=== PATIENT | male | born 1940 | race Caucasian/White ===

== ENCOUNTER 2018-06-04 08:58 | Emergency (ER) | payer MEDICARE, OTHER ==
[~2018-06-04] VITALS: Ht 170.2 cm; Wt 98.0 kg
[2018-06-04 09:50] LABS: BASOPHILS % (AUTO) 0 % (0-10); EOSINOPHILS # (AUTO) 0.1 10^3/uL (0.0-0.3); EOSINOPHILS % (AUTO) 2 % (0-10); HEMATOCRIT 43 % (40-54); HEMOGLOBIN 14.8 G/DL (13.3-17.7); LYMPHOCYTES # (AUTO) 1.5 X 10^3 (1.0-4.0); LYMPHOCYTES % (AUTO) 21 % (12-44); MEAN CORPUSCULAR HEMOGLOBIN 30 PG (25-34); MEAN CORPUSCULAR HGB CONC 35 G/DL (32-36); MEAN CORPUSCULAR VOLUME 85 FL (80-99); MEAN PLATELET VOLUME 9.9 FL (7.4-10.4); MONOCYTES # (AUTO) 0.6 X 10^3 (0.0-1.0); MONOCYTES % (AUTO) 8 % (0-12); NEUTROPHILS # (AUTO) 4.8 X 10^3 (1.8-7.8); NEUTROPHILS % (AUTO) 69 % (42-75); PLATELET COUNT 151 10^3/uL (130-400); RED CELL DISTRIBUTION WIDTH 13.6 % (10.0-14.5); WHITE BLOOD COUNT 6.9 10^3/uL (4.3-11.0)
--- NOTE | 2018-06-04 09:57 | NUR ---
IN ROOM AT THIS TIME.
[2018-06-04] MEDS ORDERED: GABA-488 (09:59)
[2018-06-04] MEDS ORDERED: LISI1TAB10 (09:59)
[2018-06-04] MEDS ORDERED: SIMV40TA4 (09:59)
[2018-06-04] MEDS ORDERED: NS IV 1000 ML 1,000 ML IV ONE (09:59)
[2018-06-04 10:02] LABS: MAGNESIUM 2.2 MG/DL (1.8-2.4)
[2018-06-04 10:08] LABS: ALANINE AMINOTRANSFERASE 27 U/L (0-55); ALBUMIN 4.7 GM/DL (3.2-4.5); ALKALINE PHOSPHATASE 50 U/L (40-136); BILIRUBIN,TOTAL 0.7 MG/DL (0.1-1.0); BUN/CREATININE RATIO 17; CALCIUM 9.9 MG/DL (8.5-10.1); CARBON DIOXIDE 23 MMOL/L (21-32); CHLORIDE 105 MMOL/L (98-107); CREATININE SERUM 1.22 MG/DL (0.60-1.30); GFR ESTIMATED 57; GLUCOSE 126 MG/DL (70-105); POTASSIUM 4.3 MMOL/L (3.6-5.0); SODIUM 139 MMOL/L (135-145); TOTAL PROTEIN 7.4 GM/DL (6.4-8.2)
--- NOTE | 2018-06-04 10:21 | Diagnostic Imaging Report ---
CLINICAL INDICATION: Patient having fainting spells. EXAM: Portable chest x-ray, upright view. COMPARISON: None. FINDINGS: Lungs/pleura: Suspected minimal atelectasis in the right lung base; otherwise, the lungs are clear. There is no pneumothorax. There is no pleural effusion. Mediastinum: Unremarkable. Pulmonary vasculature: Unremarkable. Heart: Unremarkable. Bones/extrathoracic soft tissue: There are hypertrophic spurs seen throughout the thoracic spine. IMPRESSION: There is minimal atelectasis in the right lung base; otherwise, there is no radiographic evidence of acute cardiopulmonary process. Dictated by: Dictated on workstation # [id number]
--- NOTE | 2018-06-04 10:52 | ED General ---
General Chief Complaint: Dizziness/Syncope Stated Complaint: DIZZINESS Nursing Triage Note: ARRIVED VIA AMB TO ROOM 05. COMPLAINS DIZINESS X2 NIGHTS ALONG WITH N/D BUT DIARRHEA HAS BEEN ONGOING FOR A MONTH. Nursing Sepsis Screen: No Definite Risk Source of Information: Patient Exam Limitations: No Limitations History of Present Illness Date Seen by Provider: Jun 04, 2018 Time Seen by Provider: 09:55 Initial Comments Here with report of intermittent dizziness over the last couple of nights. Has had diarrhea ongoing for the last month intermittently. Denies blood in his stool. Denies dysuria. Denies nausea and vomiting. Dizziness was worse last night when he turned his head or trying to set up. If he was sitting in a chair then he is not having problems. Overall feeling better now and has no dizziness. He states that he had episode similar to this in the past and it was associated with dehydration. Timing/Duration: 2-3 Days, Intermittent Severity: Moderate Modifying Factors: improves with Rest Associated Systoms: No Chest Pain, No Cough, No Fever/Chills, No Nausea/ Vomiting, No Shortness of Air, No Weakness Allergies and Home Medications Allergies Coded Allergies: No Known Drug Allergies (Unverified , 06/04/18) Patient Home Medication List Home Medication List Reviewed: Yes Review of Systems Review of Systems Constitutional: see HPI; No fever; malaise; No weakness EENTM: No nose congestion, No throat pain Respiratory: No cough, No short of breath Cardiovascular: No chest pain, No edema Gastrointestinal: abdominal pain; No constipation; diarrhea; No nausea, No vomiting Genitourinary: no symptoms reported Musculoskeletal: no symptoms reported Psychiatric/Neurological: See HPI All Other Systems Reviewed Negative Unless Noted: Yes Past Cgfzqml-Qgwugf-Mqzxdi Hx Past Med/Social Hx: Reviewed Nursing Past Med/Soc Hx Patient Social History Alcohol Use: Occasionally Uses Alcohol Beverage of Choice: Beer Recreational Drug Use: No Smoking Status: Former Smoker Recent Foreign Travel: No Contact w/Someone Who Travel: No Recent Infectious Disease Expo: No Recent Hopitalizations: No Seasonal Allergies Seasonal Allergies: No Past Medical History Surgeries: Yes Orthopedic Respiratory: No Cardiac: Yes High Cholesterol, Hypertension Neurological: No Genitourinary: No Gastrointestinal: No Musculoskeletal: No Endocrine: No HEENT: No Psychosocial: No Integumentary: No Family Medical History Reviewed Nursing Family Hx No Pertinent Family Hx Physical Exam Vital Signs Vital Signs - First Documented 06/04/18 09:18 Temp 98.2 Pulse 76 Resp 16 B/P (MAP) 168/97 (120) Pulse Ox 98 O2 Delivery Room Air Capillary Refill : Less Than 3 Seconds Height, Weight, BMI Height: 5'7.00" Weight: 216lbs. oz. 97.033482qm; BMI Method:Stated General Appearance: No Apparent Distress, WD/WN HEENT: PERRL/EOMI, Pharynx Normal Neck: Non Tender, Supple Respiratory: Lungs Clear, Normal Breath Sounds Cardiovascular: Regular Rate, Rhythm, No Murmur Gastrointestinal: Non Tender, Soft Back: Normal Inspection, No CVA Tenderness, No Vertebral Tenderness Extremity: Normal Range of Motion, Non Tender Neurologic/Psychiatric: Alert, Oriented x3, No Motor/Sensory Deficits Skin: Normal Color, Warm/Dry Progress/Results/Core Measures Suspected Sepsis Recent Fever Within 48 Hours: No Infection Criteria Present: Suspected New Infection New/Unexplained Altered Menta: No Sepsis Screen: No Definite Risk SIRS Temperature:98.2 Pulse: 76 Respiratory Rate: 16 Laboratory Tests 06/04/18 09:35: White Blood Count 6.9 Blood Pressure 168 /97 Mean: 120 Laboratory Tests 06/04/18 09:35: Creatinine 1.22, Platelet Count 151, Total Bilirubin 0.7 06/04/18 09:40: INR Comment 1.0 Results/Orders Lab Results Laboratory Tests Test 06/04/18 09:35 06/04/18 09:40 06/04/18 11:10 Range/Units White Blood Count 6.9 4.3-11.0 10^3/uL Red Blood Count 4.98 4.35-5.85 10^6/uL Hemoglobin 14.8 13.3-17.7 G/DL Hematocrit 43 40-54 % Mean Corpuscular Volume 85 80-99 FL Mean Corpuscular Hemoglobin 30 25-34 PG Mean Corpuscular Hemoglobin Concent 35 32-36 G/DL Red Cell Distribution Width 13.6 10.0-14.5 % Platelet Count 151 130-400 10^3/uL Mean Platelet Volume 9.9 7.4-10.4 FL Neutrophils (%) (Auto) 69 42-75 % Lymphocytes (%) (Auto) 21 12-44 % Monocytes (%) (Auto) 8 0-12 % Eosinophils (%) (Auto) 2 0-10 % Basophils (%) (Auto) 0 0-10 % Neutrophils # (Auto) 4.8 1.8-7.8 X 10^3 Lymphocytes # (Auto) 1.5 1.0-4.0 X 10^3 Monocytes # (Auto) 0.6 0.0-1.0 X 10^3 Eosinophils # (Auto) 0.1 0.0-0.3 10^3/uL Basophils # (Auto) 0.0 0.0-0.1 10^3/uL Sodium Level 139 135-145 MMOL/L Potassium Level 4.3 3.6-5.0 MMOL/L Chloride Level 105 98-107 MMOL/L Carbon Dioxide Level 23 21-32 MMOL/L Anion Gap 11 5-14 MMOL/L Blood Urea Nitrogen 21 H 7-18 MG/DL Creatinine 1.22 0.60-1.30 MG/DL Estimat Glomerular Filtration Rate 57 BUN/Creatinine Ratio 17 Glucose Level 126 H 70-105 MG/DL Calcium Level 9.9 8.5-10.1 MG/DL Corrected Calcium 8.5-10.1 MG/DL Total Bilirubin 0.7 0.1-1.0 MG/DL Aspartate Amino Transf (AST/SGOT) 21 5-34 U/L Alanine Aminotransferase (ALT/SGPT) 27 0-55 U/L Alkaline Phosphatase 50 40-136 U/L Total Protein 7.4 6.4-8.2 GM/DL Albumin 4.7 H 3.2-4.5 GM/DL Prothrombin Time 13.0 12.2-14.7 SEC INR Comment 1.0 0.8-1.4 Activated Partial Thromboplast Time 25 24-35 SEC Magnesium Level 2.2 1.8-2.4 MG/DL Myoglobin 51.3 10.0-92.0 NG/ML Troponin I < 0.028 <0.028 NG/ML Urine Color YELLOW Urine Clarity SLIGHTLY CLOUDY Urine pH 7 5-9 Urine Specific [place] 1.010 L 1.016-1.022 Urine Protein NEGATIVE NEGATIVE Urine Glucose (UA) NEGATIVE NEGATIVE Urine Ketones NEGATIVE NEGATIVE Urine Nitrite NEGATIVE NEGATIVE Urine Bilirubin NEGATIVE NEGATIVE Urine Urobilinogen NORMAL NORMAL MG/DL Urine Leukocyte Esterase NEGATIVE NEGATIVE Urine RBC (Auto) NEGATIVE NEGATIVE Urine RBC NONE /HPF Urine WBC RARE /HPF Urine Crystals NONE /LPF Urine Bacteria NEGATIVE /HPF Urine Casts NONE /LPF Urine Mucus NEGATIVE /LPF Urine Culture Indicated NO My Orders Orders - ANDRES KRUEGER MD Ekg Tracing (06/04/18 09:15) Cbc With Automated Diff (06/04/18 09:44) Comprehensive Metabolic Panel (06/04/18 09:44) Ua Culture If Indicated (06/04/18 09:44) Magnesium (06/04/18 09:48) Chest 1 View, Ap/Pa Only (06/04/18 09:48) Cardiac Profile 1 (06/04/18 09:48) Myoglobin Serum (06/04/18 09:48) Protime With Inr (06/04/18 09:48) Partial Thromboplastin Time (06/04/18 09:48) O2 (06/04/18 09:48) Monitor-Rhythm Ecg Trace Only (06/04/18 09:48) Lipid Panel (06/05/18 06:00) Ed Iv/Invasive Line Start (06/04/18 09:48) Ns Iv 1000 Ml (Sodium Chloride 0.9%) (06/04/18 09:59) Meclizine Tablet (Antivert Tablet) (06/04/18 11:30) Dexamethasone Injection (Decadron Inject (06/04/18 11:30) Medications Given in ED Current Medications Medications Dose Ordered Sig/Afia Route Start Time Stop Time Status Last Admin Dose Admin Dexamethasone Sodium Phosphate 10 mg ONCE ONCE IV 06/04/18 11:30 06/04/18 11:31 DC 06/04/18 12:06 10 MG Meclizine HCl 25 mg ONCE ONCE PO 06/04/18 11:30 06/04/18 11:31 DC 06/04/18 12:08 25 MG Sodium Chloride 1,000 ml @ 0 mls/hr Q0M ONCE IV 06/04/18 09:59 06/04/18 10:01 DC 06/04/18 10:08 1,000 MLS/HR Vital Signs/I&O 06/04/18 09:18 Temp 98.2 Pulse 76 Resp 16 B/P (MAP) 168/97 (120) Pulse Ox 98 O2 Delivery Room Air Capillary Refill : Less Than 3 Seconds Blood Pressure Mean: 120 Progress Note : Progress Note Seen and evaluated. IV, labs, EKG and chest x-ray ordered. Normal saline 1 L bolus. Monitor patient. 1200: UA obtained. 1300: Meclizine 25 mg by mouth ordered. Decadron 10 mg IV ordered. Overall no acute findings. We will see if he improves. 1350: Patient able to get up without difficulty. He will continue meclizine outpatient when necessary follow-up with his doctor. Discharged home with return precautions. Patient verbalize understanding instructions and agreement with plan. ECG Initial ECG Impression Date: Jun 04, 2018 Initial ECG Impression Time: 10:53 Initial ECG Rate: 72 Initial ECG Rhythm: Normal Sinus Comment Sinus rhythm with a ventricular complexes. No evidence of ST elevation IA. No previous available for comparison. Interpreted by me. Diagnostic Imaging Diagonstic Imaging: Xray Plain Films/CT/US/NM/MRI: chest Comments [facility] [employer] [facility] [place], [place] NAME: BECKY TADEO [facility] REC#: [id number] PT STATUS: REG ER : 1940 PHYSICIAN: ANDRES KRUEGER MD ADMIT DATE: 06/04/18/ER Draft Date of Exam:06/04/18 CHEST 1 VIEW, AP/PA ONLY CLINICAL INDICATION: Patient having fainting spells. EXAM: Portable chest x-ray, upright view. COMPARISON: None. FINDINGS: Lungs/pleura: Suspected minimal atelectasis in the right lung base; otherwise, the lungs are clear. There is no pneumothorax. There is no pleural effusion. Mediastinum: Unremarkable. Pulmonary vasculature: Unremarkable. Heart: Unremarkable. Bones/extrathoracic soft tissue: There are hypertrophic spurs seen throughout the thoracic spine. IMPRESSION: There is minimal atelectasis in the right lung base; otherwise, there is no radiographic evidence of acute cardiopulmonary process. Dictated on workstation # [id number] Dict: 06/04/18 1016 Trans: 06/04/18 1020 [id number] Interpreted by: MAICO ONEILL MD Electronically signed by: Departure Impression Primary Impression: Vertigo Disposition: 01 HOME, SELF-CARE Condition: Improved Departure-Patient Inst. Decision time for Depature: 13:52 Referrals: NO,LOCAL PHYSICIAN (PCP) Primary Care Physician Patient Instructions: Vertigo (a Type of Dizziness) (DC) Add. Discharge Instructions: All discharge instructions reviewed with patient and/or family. Voiced understanding. Continue to drink plenty of fluids. He should follow up with your doctor especially to discuss your long-standing diarrhea. You may need colonoscopy at some point. Eat a regular diet. You may take meclizine 25 mg 1 tablet every 8 hours as needed for dizziness or vertigo. You can get this [id number]. Return for worse pain, fever, vomiting, weakness, breathing problems or other concerns as needed. ANDRES KRUEGER MD Jun 04, 2018 10:52
--- NOTE | 2018-06-04 11:01 | NUR ---
IN TALKING TO PT AT THIS TIME.
--- NOTE | 2018-06-04 11:17 | NUR ---
IN TALKING TO PT AT THIS TIME.
[2018-06-04] MEDS ORDERED: DEXAMETHASONE 10 MG/ML (DECADRON) 1 ML VIAL IV ONE (11:30)
[2018-06-04] MEDS ORDERED: MECLIZINE 25 MG (ANTIVERT) TAB PO ONE (11:30)
[2018-06-04 11:37] LABS: BILIRUBIN,URINE NEGATIVE (NEGATIVE); CLARITY,URINE SLIGHTLY CLOUDY; COLOR,URINE YELLOW; GLUCOSE, URINE (UA) NEGATIVE (NEGATIVE); KETONES,URINE NEGATIVE (NEGATIVE); LEUKOCYTE ESTERASE ,URINE NEGATIVE (NEGATIVE); NITRITE,URINE NEGATIVE (NEGATIVE); PH,URINE 7 (5-9); PROTEIN,URINE NEGATIVE (NEGATIVE); UROBILINOGEN,URINE NORMAL (NORMAL)
[2018-06-04 12:08] LABS: BACTERIA,URINE NEGATIVE /HPF; WBC,URINE RARE /HPF
--- NOTE | 2018-06-04 12:28 | NUR ---
IN TALKING TO PT AT THIS TIME.
--- NOTE | 2018-06-04 12:42 | NUR ---
IN ROOM AT THIS TIME.
--- NOTE | 2018-06-04 13:50 | NUR ---
HAD PT SIT UP AND STAND ABS. DENIES DIZZINESS AT THIS ITME. NOTIFIED.
[2018-06-04 14:07] VITALS: BP 154/84
== END 2018-06-04 14:07 | disposition home or self-care (01) ==
LOC: ER 09:00
DX: R42 Dizziness and giddiness (principal); E78.00 Pure hypercholesterolemia, unspecified; I10 Essential (primary) hypertension; Z87.891 Personal history of nicotine dependence
CPT/HCPCS: 36415; 71045; 80053; 81000; 83735; 83874; 84484; 85025; 85610; 85730; 93005; 93041

== ENCOUNTER → 2019-01-09 | Outpatient (CLI) | payer MEDICARE ==
[~2019-01-09] MED LIST: GABA-488; LISI1TAB10; SIMV40TA4
--- NOTE | 2019-01-09 14:05 | Diagnostic Imaging Report ---
INDICATION: Palpable lump on the right side of the neck. Sonographic interrogation of the area of palpable lump in the right neck was performed. There is a homogeneous hypoechoic mass measuring 8.3 x 6.7 x 2.7 cm. No internal vascularity is seen. This has the appearance of a lipoma. No other abnormality is seen. IMPRESSION: Probable lipoma at the area of palpable abnormality. Follow-up to confirm stability could be performed. Dictated by: Dictated on workstation # [id number]
== END ==
LOC: RAD 12:16
PROVIDERS: ATTEND Surgery
DX: R22.1 Localized swelling, mass and lump, neck (principal)
CPT/HCPCS: 76536

== ENCOUNTER → 2019-01-28 | Outpatient (CLI) | payer MEDICARE ==
[~2019-01-28] MED LIST changes: +ASPI-586 PO; +ASPI325T32 PO; +FAMO20TA5 PO; +FERR325T5 PO; -GABA-488; +GABA-488 PO; -LISI1TAB10; +LISI1TAB26 PO; +SIMV40TA25 PO; -SIMV40TA4; +TMSL.4C PO
== END | disposition home or self-care (01) ==
LOC: PREOP 05:36
PROVIDERS: ATTEND Surgery
DX: Z01.818 Encounter for other preprocedural examination (principal)

== ENCOUNTER 2019-02-15 17:39 | Inpatient (IN) | payer MEDICARE ==
[~2019-02-15] VITALS: Ht 165 cm; Wt 110.8 kg
[~2019-02-15 17:39] MED LIST changes: -ASPI325T32 PO; -FAMO20TA5 PO; -FERR325T5 PO; +LISI1TAB10 PO; -LISI1TAB26 PO; -SIMV40TA25 PO; +SIMV40TA4 PO; -TMSL.4C PO
[2019-02-15 18:13] LABS: BASOPHILS # (AUTO) 0.1 10^3/uL (0.0-0.1); BASOPHILS % (AUTO) 0 % (0-10); EOSINOPHILS # (AUTO) 0.1 10^3/uL (0.0-0.3); EOSINOPHILS % (AUTO) 1 % (0-10); HEMATOCRIT 36 % (40-54); LYMPHOCYTES # (AUTO) 1.8 X 10^3 (1.0-4.0); LYMPHOCYTES % (AUTO) 11 % (12-44); MEAN CORPUSCULAR HEMOGLOBIN 29 PG (25-34); MEAN CORPUSCULAR HGB CONC 34 G/DL (32-36); MEAN CORPUSCULAR VOLUME 87 FL (80-99); MEAN PLATELET VOLUME 9.6 FL (7.4-10.4); MONOCYTES # (AUTO) 0.9 X 10^3 (0.0-1.0); MONOCYTES % (AUTO) 5 % (0-12); NEUTROPHILS # (AUTO) 14.1 X 10^3 (1.8-7.8); NEUTROPHILS % (AUTO) 83 % (42-75); PLATELET COUNT 208 10^3/uL (130-400); RED CELL DISTRIBUTION WIDTH 13.2 % (10.0-14.5)
[2019-02-15] MEDS ORDERED: NS IV 1000 ML 1,000 ML IV ONE (18:13)
[2019-02-15 18:23] LABS: BAND NEUTROPHILS 6 %; BASOPHILS % (MANUAL) 1 %; EOSINOPHILS % (MANUAL) 2 %; LYMPHOCYTES % (MANUAL) 10 %; MONOCYTES % (MANUAL) 2 %; NEUTROPHILS % (MANUAL) 76 %; REACTIVE LYMPHOCYTES 3 %; TOXIC GRANULATION/VACUOLAZATIO 1+
[2019-02-15 18:27] LABS: PROTHROMBIN TIME PATIENT 13.6 SEC (12.2-14.7)
[2019-02-15 18:36] LABS: BILIRUBIN,TOTAL 0.3 MG/DL (0.1-1.0); CALCIUM 8.7 MG/DL (8.5-10.1); CREATININE SERUM 1.52 MG/DL (0.60-1.30); POTASSIUM 4.1 MMOL/L (3.6-5.0); TOTAL PROTEIN 6.3 GM/DL (6.4-8.2)
--- NOTE | 2019-02-15 18:40 | ED GI ---
General Chief Complaint: Rect Problems Stated Complaint: RECTAL BLEEDING Nursing Triage Note: c/o rectal bleeding starting this afternoon x4 Sepsis Screen: No Definite Risk Source of Information: Patient Exam Limitations: No Limitations History of Present Illness Date Seen by Provider: Feb 15, 2019 Time Seen by Provider: 17:41 Initial Comments This 78-year-old gentleman presents to the emergency room with multiple episodes of profound bright red rectal bleeding tonight. He has been feeling lightheaded. He had a colonoscopy on February 04 revealing a large rectal polyp that could not be removed at that time. Surgery is anticipated in the near future. 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 He reports having 3 or 4 episodes of profound rectal bleeding at home and then another episode after arriving to the ER. He is hypotensive on arrival. Just after initial assessment he had a hypotensive episode with near syncope. He had some brief tremoring seizure-like activity and became very diaphoretic. Systolic blood pressure was in the 60s at that time. He has no active bleeding on exam and states the urge to have a bowel movement has passed. Patient's primary care provider is Mary Irizarry at [facility] in [place]. Allergies and Home Medications Allergies Coded Allergies: No Known Drug Allergies (Unverified , 06/04/18) Home Medications Gabapentin 300 Mg Capsule, 300 MG PO TID, (Reported) Lisinopril/Hydrochlorothiazide 1 Each Tablet, 1 TAB PO DAILY, (Reported) Simvastatin 40 Mg Tablet, 40 MG PO HS, (Reported) Patient Home Medication List Home Medication List Reviewed: Yes Review of Systems Review of Systems Constitutional: no symptoms reported EENTM: No Symptoms Reported Respiratory: No Symptoms Reported Cardiovascular: See HPI Gastrointestinal: See HPI Genitourinary: No Symptoms Reported Musculoskeletal: no symptoms reported Skin: no symptoms reported Psychiatric/Neurological: No Symptoms Reported Endocrine: No Symptoms Reported Hematologic/Lymphatic: See HPI Past Niavbvt-Hqqzsx-Zybhtf Hx Past Med/Social Hx: Reviewed and Corrections made Patient Social History Alcohol Use: Denies Use Number of Drinks Today: AA Alcohol Beverage of Choice: Beer Recreational Drug Use: No Former Smoker, Quit: Jan 19, 1951 Recent Foreign Travel: No Contact w/Someone Who Travel: No Recent Infectious Disease Expo: No Recent Hopitalizations: No Immunizations Up To Date Date of Influenza Vaccine: Oct 21, 2018 Seasonal Allergies Seasonal Allergies: No Past Medical History Surgeries: Yes Orthopedic Respiratory: No Cardiac: Yes High Cholesterol, Hypertension Neurological: No Genitourinary: No Gastrointestinal: Yes Pancreatitis, Polyps (large rectal polyp, pathology revealed tubulovillous adenoma) Musculoskeletal: No Endocrine: No HEENT: No 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 oz. 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, no motor/sensory deficits, alert, normal mood/affect, oriented x 3 Skin: warm/dry, pallor Progress/Results/Core Measures Results/Orders Lab Results Laboratory Tests Test 02/15/19 18:00 Range/Units White Blood Count 17.0 H 4.3-11.0 10^3/uL Red Blood Count 4.10 L 4.35-5.85 10^6/uL Hemoglobin 12.0 L 13.3-17.7 G/DL Hematocrit 36 L 40-54 % Mean Corpuscular Volume 87 80-99 FL Mean Corpuscular Hemoglobin 29 25-34 PG Mean Corpuscular Hemoglobin Concent 34 32-36 G/DL Red Cell Distribution Width 13.2 10.0-14.5 % Platelet Count 208 130-400 10^3/uL Mean Platelet Volume 9.6 7.4-10.4 FL Neutrophils (%) (Auto) 83 H 42-75 % Lymphocytes (%) (Auto) 11 L 12-44 % Monocytes (%) (Auto) 5 0-12 % Eosinophils (%) (Auto) 1 0-10 % Basophils (%) (Auto) 0 0-10 % Neutrophils # (Auto) 14.1 H 1.8-7.8 X 10^3 Lymphocytes # (Auto) 1.8 1.0-4.0 X 10^3 Monocytes # (Auto) 0.9 0.0-1.0 X 10^3 Eosinophils # (Auto) 0.1 0.0-0.3 10^3/uL Basophils # (Auto) 0.1 0.0-0.1 10^3/uL Neutrophils % (Manual) 76 % Lymphocytes % (Manual) 10 % Monocytes % (Manual) 2 % Eosinophils % (Manual) 2 % Basophils % (Manual) 1 % Band Neutrophils 6 % Reactive Lymphocytes 3 % Toxic Granulation 1+ Prothrombin Time 13.6 12.2-14.7 SEC INR Comment 1.0 0.8-1.4 Activated Partial Thromboplast Time 27 24-35 SEC Sodium Level 133 L 135-145 MMOL/L Potassium Level 4.1 3.6-5.0 MMOL/L Chloride Level 100 98-107 MMOL/L Carbon Dioxide Level 20 L 21-32 MMOL/L Anion Gap 13 5-14 MMOL/L Blood Urea Nitrogen 28 H 7-18 MG/DL Creatinine 1.52 H 0.60-1.30 MG/DL Estimat Glomerular Filtration Rate 44 BUN/Creatinine Ratio 18 Glucose Level 173 H 70-105 MG/DL Calcium Level 8.7 8.5-10.1 MG/DL Corrected Calcium 8.7 8.5-10.1 MG/DL Total Bilirubin 0.3 0.1-1.0 MG/DL Aspartate Amino Transf (AST/SGOT) 22 5-34 U/L Alanine Aminotransferase (ALT/SGPT) 33 0-55 U/L Alkaline Phosphatase 49 40-136 U/L Total Protein 6.3 L 6.4-8.2 GM/DL Albumin 4.0 3.2-4.5 GM/DL My Orders Orders - ANALIA GRIMALDO MD Protime With Inr (02/15/19 18:13) Partial Thromboplastin Time (02/15/19 18:13) Ed Iv/Invasive Line Start (02/15/19 18:13) Ns Iv 1000 Ml (Sodium Chloride 0.9%) (02/15/19 18:13) Red Cells Leukocytes Reduced (02/15/19 18:13) Type And Screen (02/15/19 18:13) Red Cells Leukocytes Reduced (02/15/19 18:13) Medications Given in ED Current Medications Medications Dose Ordered Sig/Afia Route Start Time Stop Time Status Last Admin Dose Admin Sodium Chloride 1,000 ml @ 0 mls/hr Q0M ONCE IV 02/15/19 18:13 02/15/19 18:16 DC 02/15/19 18:15 0 MLS/HR Vital Signs/I&O 02/15/19 17:55 Temp 36.8 Pulse 84 Resp 12 B/P (MAP) 87/57 (67) Pulse Ox 99 Blood Pressure Mean: 67 Progress Progress Note #1: Time: 18:41 Progress Note IV fluids were initiated immediately after the near syncopal episode. We had a good response with systolic blood pressures in the 110s after 500 mL normal saline. Four units of blood are being crossmatched to hold. Dr. Mendoza has been notified of the patient's condition and background history. Progress Note #2: Time: 19:21 Progress Note Blood pressure responded well to the 1 L of normal saline. Patient remained stable with no active bleeding at this time. Case was discussed with Dr. Rocha and Dr. Mendoza. Patient will be admitted to the cardiac step down unit. 4 units of bladder being held as a precaution. He will be kept nothing by mouth. Departure Communication (Admissions) Time/Spoke to Admitting Phy: 19:10 Dr. Rocha Time/Spoke to Consulting Phy: 19:15 Dr. Mendoza Impression Primary Impression: Rectal bleeding Additional Impressions: Acute blood loss anemia Hypotension Qualified Codes: I95.89 - Other hypotension; E86.1 - Hypovolemia Leukocytosis Qualified Codes: D72.829 - Elevated white blood cell count, unspecified Rectal polyp Disposition: 09 ADMITTED INPATIENT Condition: Improved Admissions Decision to Admit Reason: Admit from ER (General) Decision to Admit/Date: Feb 15, 2019 Time/Decision to Admit Time: 17:45 Departure-Patient Inst. Referrals: NO,LOCAL PHYSICIAN (PCP) Primary Care Physician MARY LAW APRN (Family) Primary Care Physician ANALIA GRIMALDO MD Feb 15, 2019 18:40
[2019-02-15 22:00] VITALS: BP_SYST 120; BP_SYST 123; BP_DIAS 65
[2019-02-15] MEDS: LACTATED RINGERS 1,000 ML IV SCH (22:00)
[2019-02-15] MEDS: ONDANSETRON 4 MG/2 ML (SDV) Z0FRAN IV PRN (22:00)
[2019-02-16 00:02] VITALS: BP 118/65
[2019-02-16 04:00] VITALS: BP 136/78
[2019-02-16 04:54] LABS: BASOPHILS % (AUTO) 0 % (0-10); EOSINOPHILS # (AUTO) 0.1 10^3/uL (0.0-0.3); EOSINOPHILS % (AUTO) 1 % (0-10); HEMATOCRIT 28 % (40-54); HEMOGLOBIN 9.8 G/DL (13.3-17.7); LYMPHOCYTES # (AUTO) 1.8 X 10^3 (1.0-4.0); LYMPHOCYTES % (AUTO) 20 % (12-44); MEAN CORPUSCULAR HEMOGLOBIN 30 PG (25-34); MEAN CORPUSCULAR HGB CONC 35 G/DL (32-36); MEAN CORPUSCULAR VOLUME 86 FL (80-99); MEAN PLATELET VOLUME 9.6 FL (7.4-10.4); MONOCYTES # (AUTO) 0.7 X 10^3 (0.0-1.0); MONOCYTES % (AUTO) 8 % (0-12); NEUTROPHILS # (AUTO) 6.4 X 10^3 (1.8-7.8); NEUTROPHILS % (AUTO) 72 % (42-75); PLATELET COUNT 163 10^3/uL (130-400); WHITE BLOOD COUNT 8.9 10^3/uL (4.3-11.0)
[2019-02-16 05:08] LABS: ALBUMIN 3.4 GM/DL (3.2-4.5); BILIRUBIN,TOTAL 0.5 MG/DL (0.1-1.0); CREATININE SERUM 1.29 MG/DL (0.60-1.30); POTASSIUM 4.3 MMOL/L (3.6-5.0); TOTAL PROTEIN 5.1 GM/DL (6.4-8.2)
[2019-02-16] MEDS: ONDANSETRON 4 MG/2 ML (SDV) Z0FRAN IV PRN (05:17)
[2019-02-16] MEDS: LACTATED RINGERS 1,000 ML IV SCH ×3 (05:17→19:45)
[2019-02-16 07:40] VITALS: BP 114/71
[2019-02-16] MEDS: FAMOTIDINE 20MG/2ML IV (PEPCID) IVP SCH ×2 (10:28→19:52)
--- NOTE | 2019-02-16 11:51 | History & Physical-Hospitalist ---
History of Present Illness HPI/Chief Complaint this is an 78-year-old white male who had had a colonoscopy approximately 3 weeks prior to this presentation. Dr. Cardoza had done this procedure. 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 The patient had been doing well without problems until yesterday when he noticed that he had an urgency to defecate and found that he had a great deal of rectal bleeding. He became dizzy and diaphoretic and almost passed out several times as the patient continued. He presented to the emergency room with similar complaints with an elevated white count of 17,000 and hemoglobin of 12. Overnight even though the bleeding has slowed down the hemoglobin has dropped to 9.8. He has no complaints of abdominal pain or issues related to that other than the near syncopal episodes associated with the bleeding. Source: patient Exam Limitations: no limitations Date Seen 02/16/19 Time Seen by a Provider: 11:30 Attending Physician Rozina Rocha MD PCP No,Local Physician Referring Physician Date of Admission Feb 15, 2019 at 19:20 Home Medications & Allergies Home Medications Reviewed patient Home Medication Reconciliation performed by pharmacy medication reconciliations appliance technician and/or nursing. Patients Allergies have been reviewed. Allergies Allergies Coded Allergies No Known Drug Allergies (Unverified06/04/18) Past Vfedfzf-Xhfdco-Fwuydu Hx Past Med/Social Hx: Reviewed Nursing Past Med/Soc Hx, Reviewed and Corrections made Patient Social History Marrital Status: Employed/Student: retired Alcohol Use: Denies Use Number of Drinks Today: AA Alcohol Beverage of Choice: Beer Recreational Drug Use: No Former Smoker, Quit: Jan 19, 1951 Recent Foreign Travel: No Contact w/other who traveled: No Recent Hopitalizations: No Recent Infectious Disease Expo: No Immunizations Up To Date Date of Pneumonia Vaccine: Feb 15, 2018 Date of Influenza Vaccine: Oct 21, 2018 Seasonal Allergies Seasonal Allergies: No Past Medical History Surgeries: Orthopedic Cardiac: High Cholesterol, Hypertension Gastrointestinal: Pancreatitis, Polyps (large rectal polyp, pathology revealed tubulovillous adenoma) HEENT: Cataract Family History No Pertinent Family Hx Review of Systems Constitutional: see HPI, dizziness, weakness EENTM: no symptoms reported Respiratory: no symptoms reported Cardiovascular: no symptoms reported Gastrointestinal: see HPI Genitourinary: no symptoms reported Musculoskeletal: no symptoms reported Skin: no symptoms reported Psychiatric/Neurological: No Symptoms Reported Physical Exam Physical Exam Vital Signs Vital Signs - First Documented 02/15/19 02/15/19 17:55 22:25 Temp 36.8 Pulse 84 Resp 12 B/P (MAP) 87/57 (67) Pulse Ox 99 O2 Delivery Nasal Cannula O2 Flow Rate 2.00 Capillary Refill : Less Than 3 SecondsLess Than 3 Seconds Height, Weight, BMI Height: 5'7.00" Weight: 216lbs. oz. 97.663212yq; 35.62 BMI Method:Stated General Appearance: No Apparent Distress, WD/WN HEENT: PERRL/EOMI, TMs Normal, Normal ENT Inspection, Pharynx Normal, Other (edentulous) Neck: Full Range of Motion, Normal Inspection, Non Tender, Supple Respiratory: Chest Non Tender, Lungs Clear, Normal Breath Sounds, No Accessory Muscle Use, No Respiratory Distress Cardiovascular: Regular Rate, Rhythm, No Edema, No Gallop, No JVD, No Murmur, Normal Peripheral Pulses Gastrointestinal: Normal Bowel Sounds, No Organomegaly, Soft Rectal: Deferred Back: Normal Inspection, No Vertebral Tenderness Extremity: Normal Capillary Refill, Normal Inspection, Non Tender, No Calf Tenderness Neurologic/Psychiatric: Alert, Oriented x3, No Motor/Sensory Deficits, Normal Mood/Affect, tool crib attendant II-XII Norm as Tested Skin: Warm/Dry, Pallor Lymphatic: No Adenopathy Results Results/Procedures Labs Laboratory Tests 02/15/19 18:00 02/16/19 04:33 Patient resulted labs reviewed. Imaging: Reviewed Imaging Report Assessment/Plan Admission Diagnosis rectal bleeding most likely related to villous adenoma Anemia secondary to rectal bleeding Mild dehydration improved Near syncope most likely related to volume loss and possible vasovagal reaction Plan for surgical consultation and to follow the recommendations of the surgeons. Admission Status: Observation Clinical Quality Measures DVT/VTE Risk/Contraindication: Risk Factor Score Per Nursin RFS Level Per Nursing on Admit: 2=Moderate ROZINA ROCHA MD Feb 16, 2019 11:51
[2019-02-16 11:55] VITALS: BP 128/73
--- NOTE | 2019-02-16 13:01 | Consultation - Surgery ---
History of Present Illness History of Present Illness Patient Consulted On(anuja/time) 02/16/19 12:56 Time Seen by Provider: 11:52 History of Present Illness Surgery asked to consult regarding rectal bleed and anemia; pt with hx of large rectal polyp? HPI per IM: this is an 78-year-old white male who had had a colonoscopy approximately 3 weeks prior to this presentation. Dr. Cardoza had done this procedure. 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 The patient had been doing well without problems until yesterday when he noticed that he had an urgency to defecate and found that he had a great deal of rectal bleeding. He became dizzy and diaphoretic and almost passed out several times as the patient continued. He presented to the emergency room with similar complaints with an elevated white count of 17,000 and hemoglobin of 12. Overnight even though the bleeding has slowed down the hemoglobin has dropped to 9.8. He has no complaints of abdominal pain or issues related to that other than the near syncopal episodes associated with the bleeding. When I spoke to pt today he states no bloody BM's today, denies abdominal pain. He thinks he would like to have surgery during this admission. Pt has no complaints today, just wants to eat. Allergies and Home Medications Allergies Coded Allergies: No Known Drug Allergies (Unverified , 06/04/18) Home Medications Gabapentin 300 Mg Capsule, 300 MG PO TID, (Reported) Lisinopril/Hydrochlorothiazide 1 Each Tablet, 1 TAB PO DAILY, (Reported) Simvastatin 40 Mg Tablet, 40 MG PO HS, (Reported) Patient Home Medication List Home Medication List Reviewed: Yes Past Crnpnlc-Knmvqa-Imbojt Hx Patient Social History Alcohol Use: Denies Use Number of Drinks Today: AA Recreational Drug Use: No Smoking Status: Former Smoker (quit in 1970) Former Smoker, Quit: Jan 19, 1953 Recent Foreign Travel: No Contact w/Someone Who Travel: No Recent Infectious Disease Expo: No Recent Hopitalizations: No Immunizations Up To Date Date of Pneumonia Vaccine: Feb 15, 2018 Date of Influenza Vaccine: Oct 21, 2018 Seasonal Allergies Seasonal Allergies: No Surgeries History of Surgeries: Yes Surgeries: Orthopedic Respiratory History of Respiratory Disorde: No Cardiovascular History of Cardiac Disorders: Yes Cardiac Disorders: High Cholesterol, Hypertension Neurological History of Neurological Disord: No Genitourinary History of Genitourinary Disor: No Gastrointestinal History of Gastrointestinal Di: Yes Gastrointestinal Disorders: Pancreatitis, Polyps (large rectal polyp, pathology revealed tubulovillous adenoma) Musculoskeletal History of Musculoskeletal Dis: No Endocrine History of Endocrine Disorders: No HEENT History of HEENT Disorders: No HEENT Disorders: Cataract Cancer History of Cancer: 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) Psychosocial History of Psychiatric Problem: No Integumentary History of Skin or Integumenta: Yes (SKIN CANCER) Family Medical History Significant Family History: Cancer (brother had cancer of jaw), CAD Over 55 Years Old, Hypertension Review of Systems-General Constitutional: diaphoresis, dizziness, malaise, weakness EENTM: No blurred vision, No double vision, No mouth pain, No mouth swelling, No epistaxis Respiratory: No cough, No hemoptysis, No phlegm; short of breath Cardiovascular: No chest pain, No edema, No palpitations Gastrointestinal: No abdominal pain, No dysphagia, No hematemesis, No nausea, No vomiting Genitourinary: No dysuria, No frequency, No hematuria Musculoskeletal: joint pain, joint swelling, muscle pain, muscle stiffness Skin: No change in color, No change in hair/nails Psychiatric/Neurological: Denies Anxiety, Denies Depressed, Denies Seizure, Denies Tremors Other HEMATOLOGY Pt denies any hx of abnormal bleeding or bruising Physical Exam-General Problems Physical Exam Vital Signs Vital Signs - First Documented 02/15/19 02/15/19 17:55 22:25 Temp 36.8 Pulse 84 Resp 12 B/P (MAP) 87/57 (67) Pulse Ox 99 O2 Delivery Nasal Cannula O2 Flow Rate 2.00 Capillary Refill : Less Than 3 SecondsLess Than 3 Seconds General Appearance: WD/WN, no apparent distress Eyes: Bilateral Eye PERRL, Bilateral Eye EOMI HEENT: pharynx normal; No scleral icterus (R), No scleral icterus (L) Neck: full range of motion, supple, other (pt has large mass right posterior neck, appx 10-12 cm feels like lipoma) Respiratory: chest non-tender, lungs clear, normal breath sounds, no r espiratory distress, no accessory muscle use Cardiovascular: regular rate, rhythm, no murmur Gastrointestinal: non tender, soft, no organomegaly, no pulsatile mass Back: no CVA tenderness, no vertebral tenderness Extremities: no pedal edema, no calf tenderness, normal capillary refill, other (pt has large mass on left 5th finger and knuckle of right hand) Neurologic/Psychiatric: mri tech II-XII nml as tested, no motor/sensory deficits, alert, normal mood/affect, oriented x 3 Skin: normal color, warm/dry Lymphatic: no adenopathy (neck, axilla or groin) Data Review Labs Laboratory Tests 02/15/19 18:00: White Blood Count 17.0H, Red Blood Count 4.10L, Hemoglobin 12.0L, Hematocrit 36L , Mean Corpuscular Volume 87, Mean Corpuscular Hemoglobin 29, Mean Corpuscular Hemoglobin Concent 34, Red Cell Distribution Width 13.2, Platelet Count 208, Mean Platelet Volume 9.6, Neutrophils (%) (Auto) 83H, Lymphocytes (%) (Auto) 11L , Monocytes (%) (Auto) 5, Eosinophils (%) (Auto) 1, Basophils (%) (Auto) 0, Neutrophils # (Auto) 14.1H, Lymphocytes # (Auto) 1.8, Monocytes # (Auto) 0.9, Eosinophils # (Auto) 0.1, Basophils # (Auto) 0.1, Neutrophils % (Manual) 76, Lymphocytes % (Manual) 10, Monocytes % (Manual) 2, Eosinophils % (Manual) 2, Basophils % (Manual) 1, Band Neutrophils 6, Reactive Lymphocytes 3, Toxic Granulation 1+, Prothrombin Time 13.6, INR Comment 1.0, Activated Partial Thromboplast Time 27, Sodium Level 133L, Potassium Level 4.1, Chloride Level 100, Carbon Dioxide Level 20L, Anion Gap 13, Blood Urea Nitrogen 28H, Creatinine 1.52H, Estimat Glomerular Filtration Rate 44, BUN/Creatinine Ratio 18, Glucose Level 173H, Calcium Level 8.7, Corrected Calcium 8.7, Total Bilirubin 0.3, Aspartate Amino Transf (AST/SGOT) 22, Alanine Aminotransferase (ALT/SGPT) 33, Alkaline Phosphatase 49, Total Protein 6.3L, Albumin 4.0 02/16/19 04:33: White Blood Count 8.9, Red Blood Count 3.31L, Hemoglobin 9.8L, Hematocrit 28L, Mean Corpuscular Volume 86, Mean Corpuscular Hemoglobin 30, Mean Corpuscular Hemoglobin Concent 35, Red Cell Distribution Width 13.0, Platelet Count 163, Mean Platelet Volume 9.6, Neutrophils (%) (Auto) 72, Lymphocytes (%) (Auto) 20, Monocytes (%) (Auto) 8, Eosinophils (%) (Auto) 1, Basophils (%) (Auto) 0, Neutrophils # (Auto) 6.4, Lymphocytes # (Auto) 1.8, Monocytes # (Auto) 0.7, Eosinophils # (Auto) 0.1, Basophils # (Auto) 0.0, Sodium Level 135, Potassium Level 4.3, Chloride Level 106, Carbon Dioxide Level 18L, Anion Gap 11, Blood Urea Nitrogen 28H, Creatinine 1.29, Estimat Glomerular Filtration Rate 54, BUN/Creatinine Ratio 22, Glucose Level 119H, Calcium Level 8.0L, Corrected Calcium 8.5, Total Bilirubin 0.5, Aspartate Amino Transf (AST/SGOT) 16, Alanine Aminotransferase (ALT/SGPT) 24, Alkaline Phosphatase 37L, Total Protein 5.1L, Albumin 3.4 Assessment/Plan Assessment/Plan Assessment/Plan Rectal Bleed Anemia Hx of colon polyp Pt hemoglobin dropped to 10 today, but he appears much more stable and comfortable. I would recheck Hg tomorrow am and will discuss pt with Dr. Cardoza; to plan timing of Colon resection. Pt can start clear liquids, ok to ambulate, IV fluids and take home meds. Clinical Quality Measures DVT/VTE Risk/Contraindication: Risk Factor Score Per Nursin RFS Level Per Nursing on Admit: 2=Moderate AUSTIN MONTANO DO Feb 16, 2019 13:01
[2019-02-16] MEDS ORDERED: ASPI325T32 PO (13:40)
[2019-02-16] MEDS: GABAPENTIN 300 MG (NEURONTIN) CAP PO SCH ×2 (14:41→19:45)
[2019-02-16 16:00] VITALS: BP 115/73
[2019-02-16 20:00] VITALS: BP 114/72
[2019-02-16] MEDS ORDERED: GABAPENTIN 300 MG (NEURONTIN) CAP PO SCH (21:00)
[2019-02-17] VITALS (7 sets, daily range): BP systolic 114–132; BP diastolic 63–75
[2019-02-17 04:27] LABS: BASOPHILS % (AUTO) 0 % (0-10); EOSINOPHILS # (AUTO) 0.2 10^3/uL (0.0-0.3); EOSINOPHILS % (AUTO) 3 % (0-10); HEMATOCRIT 26 % (40-54); HEMOGLOBIN 8.7 G/DL (13.3-17.7); LYMPHOCYTES # (AUTO) 1.9 X 10^3 (1.0-4.0); LYMPHOCYTES % (AUTO) 27 % (12-44); MEAN CORPUSCULAR HEMOGLOBIN 29 PG (25-34); MEAN CORPUSCULAR HGB CONC 34 G/DL (32-36); MEAN CORPUSCULAR VOLUME 87 FL (80-99); MEAN PLATELET VOLUME 9.6 FL (7.4-10.4); MONOCYTES # (AUTO) 0.4 X 10^3 (0.0-1.0); MONOCYTES % (AUTO) 6 % (0-12); NEUTROPHILS # (AUTO) 4.4 X 10^3 (1.8-7.8); NEUTROPHILS % (AUTO) 64 % (42-75); PLATELET COUNT 138 10^3/uL (130-400); RED CELL DISTRIBUTION WIDTH 13.1 % (10.0-14.5); WHITE BLOOD COUNT 6.9 10^3/uL (4.3-11.0)
[2019-02-17 04:57] LABS: ALBUMIN 3.4 GM/DL (3.2-4.5); BILIRUBIN,TOTAL 0.4 MG/DL (0.1-1.0); CREATININE SERUM 1.27 MG/DL (0.60-1.30)
[2019-02-17] MEDS: LACTATED RINGERS 1,000 ML IV SCH ×3 (05:41→21:23)
[2019-02-17] MEDS: GABAPENTIN 300 MG (NEURONTIN) CAP PO SCH ×3 (08:18→20:21)
[2019-02-17] MEDS: FAMOTIDINE 20MG/2ML IV (PEPCID) IVP SCH ×2 (08:18→20:21)
--- NOTE | 2019-02-17 10:43 | Progress Note - Hospitalist ---
Subjective HPI/CC On Admission Date Seen by Provider: Feb 17, 2019 Time Seen by Provider: 09:45 this is an 78-year-old white male who had had a colonoscopy approximately 3 weeks prior to this presentation. Dr. Cardoza had done this procedure. 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 The patient had been doing well without problems until yesterday when he noticed that he had an urgency to defecate and found that he had a great deal of rectal bleeding. He became dizzy and diaphoretic and almost passed out several times as the patient continued. [facility] with similar complaints with an elevated white count of 17,000 and hemoglobin of 12. Overnight even though the bleeding has slowed down the hemoglobin has dropped to 9.8. He has no complaints of abdominal pain or issues related to that other than the near syncopal episodes associated with the bleeding. Subjective/Events-last exam Pt doing pretty well. Still having bleeding. Dr. Cardoza saw him. Prep for colonoscopy may be required in the hospital since he is still bleeding. Noted Hgb drop, now it is 8.9. He does use alcohol quite a bit. Daughter at the bedside. Review of Systems Gastrointestinal: Melena Objective Exam Vital Signs Vital Signs Date Time Temp Pulse Resp B/P (MAP) Pulse Ox O2 Delivery O2 Flow Rate FiO2 02/17/19 16:06 36.7 65 16 127/68 (87) 97 Room Air 02/17/19 04:00 2.00 Capillary Refill : Less Than 3 SecondsLess Than 3 Seconds General Appearance: No Apparent Distress, WD/WN Respiratory: Chest Non Tender, Lungs Clear, Normal Breath Sounds, No Accessory Muscle Use, No Respiratory Distress Cardiovascular: Regular Rate, Rhythm, No Edema, No Gallop, No JVD, No Murmur, Normal Peripheral Pulses Neurologic/Psychiatric: Alert, Oriented x3, No Motor/Sensory Deficits, Normal Mood/Affect Results/Procedures Lab Laboratory Tests 02/17/19 04:00 Patient resulted labs reviewed. Imaging: Reviewed Imaging Report Assessment/Plan Assessment and Plan Assess & Plan/Chief Complaint Assessment: Melena Anemia due to acute blood loss Alcohol use Plan: Dr. Cardoza to perform C-scope Prep for C-scope Alcohol withdrawal and monitoring Diagnosis/Problems Diagnosis/Problems (1) GI (gastrointestinal bleed) (2) Bleeding per rectum (3) Acute blood loss anemia Status: Acute (4) Hypotension Status: Acute Qualifiers: Hypotension type: hypotension due to hypovolemia Qualified Codes: I95.89 - Other hypotension; E86.1 - Hypovolemia (5) Rectal polyp Status: Acute Clinical Quality Measures DVT/VTE Risk/Contraindication: Risk Factor Score Per Nursin RFS Level Per Nursing on Admit: 2=Moderate MAGNUS MERLOS DO Feb 17, 2019 10:43
--- NOTE | 2019-02-17 11:40 | NUR ---
MED REC COMPLETED PRIOR TO MED REC TECH AVAILABILITY. I COMPARED THE EXT MED HX WITH THE PRESCRIPTIONS REPORTED AND FOUND NO DISCREPANCIES. THE ONLY ADDITIONAL MED WAS ASPIRIN AND IS OTC.
--- NOTE | 2019-02-17 13:07 | NUR ---
CM/SS: Visited with pt and daughter as to plan for discharge and financial concerns per consult Plan: Pt plans to stay with daughter who lives near [place], [place] after hospital stay for 2 weeks and then return to his home in [place], [place] Summary: Pt reports he plans to stay with his daughter for 2 weeks after his hospital stay and then return to his home in [place], [place]. Pt is also concerned about his hospital bill as he only has Medicare, and he is on a limited income. Pt is open to talking with financial services about the 20% he will have to pay. Financial services notified of the request. Daughter at the bedside is Summer . She is involved in pt's care and wants him not to over do it after possible surgery. Options are discussed near daughter. She lives in [place], [place], and is about 20 minutes from [place], [place]. This worker will follow up.
--- NOTE | 2019-02-17 14:45 | NUR ---
Pt is Jewish but has not been active for many years. He is open to visiting with a machinery mover. [employer] will make that contact.
--- NOTE | 2019-02-17 16:23 | Progress Note - Surgery ---
Subjective Date Seen by a Provider: Feb 17, 2019 Time Seen by a Provider: 09:00 Subjective/Events-last exam Normal stools with small amount of blood. Hgb 8.7. No abdominal pain. Denies n/v fever sweats chills shortness of breath or chest pain. Objective Exam Vital Signs Date Time Temp Pulse Resp B/P (MAP) Pulse Ox O2 Delivery O2 Flow Rate FiO2 02/17/19 16:06 36.7 65 16 127/68 (87) 97 Room Air 02/17/19 16:00 Room Air 02/17/19 12:00 36.8 66 18 116/67 (83) 98 Room Air 02/17/19 12:00 Room Air 02/17/19 08:00 Room Air 02/17/19 08:00 36.9 68 18 125/72 (89) 98 Room Air 02/17/19 08:00 Room Air 02/17/19 04:00 98 Room Air 2.00 02/17/19 04:00 36.0 67 20 114/63 (80) 98 Room Air 02/17/19 00:00 97 Nasal Cannula 2.00 02/17/19 00:00 36.6 74 20 118/72 (87) 97 Nasal Cannula 2.00 2.00 02/16/19 23:10 Nasal Cannula 2.00 02/16/19 21:08 97 Room Air 2.00 02/16/19 20:00 36.6 72 20 114/72 (86) 98 Room Air 02/16/19 20:00 97 Room Air 2.00 I & O 02/17/19 07:00 Intake Total 3050 ml Output Total 3300 ml Balance -250 ml Capillary Refill : Less Than 3 SecondsLess Than 3 Seconds General Appearance: No Apparent Distress, WD/WN HEENT: PERRL/EOMI, Normal ENT Inspection, Other (edentulous) Neck: Full Range of Motion, Normal Inspection, Non Tender, Supple Respiratory: Chest Non Tender, No Accessory Muscle Use, No Respiratory Distress Cardiovascular: Regular Rate, Rhythm Gastrointestinal: non tender, soft, no organomegaly Extremity: Normal Capillary Refill, Normal Inspection, Non Tender, No Calf Tenderness Neurologic/Psychiatric: Alert, Oriented x3, No Motor/Sensory Deficits, Normal Mood/Affect, patient ombudsperson II-XII Norm as Tested Skin: Warm/Dry, Pallor Lymphatic: No Adenopathy Results Lab Laboratory Tests 12/30/19 04:00: White Blood Count 6.9, Red Blood Count 2.96L, Hemoglobin 8.7L, Hematocrit 26L, Mean Corpuscular Volume 87, Mean Corpuscular Hemoglobin 29, Mean Corpuscular Hemoglobin Concent 34, Red Cell Distribution Width 13.1, Platelet Count 138, Mean Platelet Volume 9.6, Neutrophils (%) (Auto) 64, Lymphocytes (%) (Auto) 27, Monocytes (%) (Auto) 6, Eosinophils (%) (Auto) 3, Basophils (%) (Auto) 0, Neutrophils # (Auto) 4.4, Lymphocytes # (Auto) 1.9, Monocytes # (Auto) 0.4, Eosinophils # (Auto) 0.2, Basophils # (Auto) 0.0, Sodium Level 141, Potassium Level 4.0, Chloride Level 110H, Carbon Dioxide Level 20L, Anion Gap 11, Blood Urea Nitrogen 19H, Creatinine 1.27, Estimat Glomerular Filtration Rate 55, BUN/Creatinine Ratio 15, Glucose Level 102, Calcium Level 8.0L, Corrected Calcium 8.5, Total Bilirubin 0.4, Aspartate Amino Transf (AST/SGOT) 13, Alanine Aminotransferase (ALT/SGPT) 21, Alkaline Phosphatase 37L, Total Protein 5.0L, Albumin 3.4 Assessment/Plan Assessment/Plan Assessment/Plan Rectal Bleed Anemia colon polyp Hg 8.7 will follow. If hgb stable can go home and prep and will plan colon resection likely . CBC in am Clear liquid diet. Transfuse prbc if needed. Clinical Quality Measures DVT/VTE Risk/Contraindication: Risk Factor Score Per Nursin RFS Level Per Nursing on Admit: 2=Moderate NALINI LAND DO Feb 17, 2019 16:23
[2019-02-18 03:46] VITALS: BP 125/68
[2019-02-18 04:50] LABS: BASOPHILS % (AUTO) 0 % (0-10); EOSINOPHILS # (AUTO) 0.2 10^3/uL (0.0-0.3); EOSINOPHILS % (AUTO) 3 % (0-10); HEMATOCRIT 24 % (40-54); LYMPHOCYTES # (AUTO) 1.5 X 10^3 (1.0-4.0); LYMPHOCYTES % (AUTO) 30 % (12-44); MEAN CORPUSCULAR HEMOGLOBIN 29 PG (25-34); MEAN CORPUSCULAR HGB CONC 33 G/DL (32-36); MEAN CORPUSCULAR VOLUME 88 FL (80-99); MEAN PLATELET VOLUME 9.7 FL (7.4-10.4); MONOCYTES # (AUTO) 0.4 X 10^3 (0.0-1.0); MONOCYTES % (AUTO) 8 % (0-12); NEUTROPHILS % (AUTO) 59 % (42-75); PLATELET COUNT 120 10^3/uL (130-400); RED CELL DISTRIBUTION WIDTH 13.4 % (10.0-14.5); WHITE BLOOD COUNT 5.1 10^3/uL (4.3-11.0)
[2019-02-18 05:13] LABS: ALANINE AMINOTRANSFERASE 16 U/L (0-55); ALBUMIN 3.3 GM/DL (3.2-4.5); ALKALINE PHOSPHATASE 35 U/L (40-136); BILIRUBIN,TOTAL 0.4 MG/DL (0.1-1.0); BUN/CREATININE RATIO 10; CARBON DIOXIDE 21 MMOL/L (21-32); CHLORIDE 111 MMOL/L (98-107); CREATININE SERUM 1.11 MG/DL (0.60-1.30); GFR ESTIMATED > 60; GLUCOSE 96 MG/DL (70-105); POTASSIUM 3.8 MMOL/L (3.6-5.0); SODIUM 141 MMOL/L (135-145); TOTAL PROTEIN 4.8 GM/DL (6.4-8.2)
[2019-02-18] MEDS: LACTATED RINGERS 1,000 ML IV SCH ×3 (05:26→21:15)
[2019-02-18] MEDS: GABAPENTIN 300 MG (NEURONTIN) CAP PO SCH ×3 (07:45→21:15)
[2019-02-18] MEDS: FAMOTIDINE 20MG/2ML IV (PEPCID) IVP SCH ×2 (07:46→21:15)
[2019-02-18 08:00] VITALS: BP 138/75
--- NOTE | 2019-02-18 10:59 | Progress Note - Hospitalist ---
Subjective HPI/CC On Admission Date Seen by Provider: Feb 18, 2019 Time Seen by Provider: 09:00 this is an 78-year-old white male who had had a colonoscopy approximately 3 weeks prior to this presentation. Dr. Cardoza had done this procedure. 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 The patient had been doing well without problems until yesterday when he noticed that he had an urgency to defecate and found that he had a great deal of rectal bleeding. He became dizzy and diaphoretic and almost passed out several times as the patient continued. He presented to the [facility] room with similar complaints with an elevated white count of 17,000 and hemoglobin of 12. Overnight even though the bleeding has slowed down the hemoglobin has dropped to 9.8. He has no complaints of abdominal pain or issues related to that other than the near syncopal episodes associated with the bleeding. Subjective/Events-last exam No more melena but high risk for bleeding Hemoglobin 8.0 today No chest pain or shortness of breath Clear liquid diet tolerated Prep for procedure tomorrow Dr. Cardoza will come up and talked to patient and [facility] Review of Systems General: Fatigue Objective Exam Vital Signs Vital Signs Date Time Temp Pulse Resp B/P (MAP) Pulse Ox O2 Delivery O2 Flow Rate FiO2 02/18/19 11:35 Room Air 02/18/19 08:00 36.5 65 18 138/75 (96) 97 02/17/19 04:00 2.00 Capillary Refill : Less Than 3 SecondsLess Than 3 Seconds General Appearance: No Apparent Distress, WD/WN Respiratory: Chest Non Tender, Lungs Clear, Normal Breath Sounds, No Accessory Muscle Use, No Respiratory Distress Cardiovascular: Regular Rate, Rhythm, No Edema, No Gallop, No JVD, No Murmur, Normal Peripheral Pulses Neurologic/Psychiatric: Alert, Oriented x3, No Motor/Sensory Deficits, Normal Mood/Affect Results/Procedures Lab Laboratory Tests 02/18/19 04:15 Patient resulted labs reviewed. Imaging: Reviewed Imaging Report Assessment/Plan Assessment and Plan Assess & Plan/Chief Complaint Assessment: Melena Anemia due to acute blood loss Alcohol use Plan: Dr. 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
[2019-02-18 12:40] VITALS: BP 119/72
--- NOTE | 2019-02-18 14:16 | NUR ---
CM/SS: Visited with pt as to plan for discharge Plan: Pt reports to having surgery on and will live with daughter for two weeks prior to returning to his home. Summary: Pt seems to be doing ok on today. Daughter is at the bedside. Pt has been watching football and reports he is being well taken care of. Pt talks about his dog, children and grandchildren, overall doing ok. This worker will follow up with pt after surgery to determine final discharge plan.
[2019-02-18 16:00] VITALS: BP 110/62
[2019-02-18] MEDS ORDERED: GOLYTELY POWDER 4000 ML BTL PO ONE (16:15)
--- NOTE | 2019-02-18 16:24 | Progress Note - Surgery ---
Subjective Date Seen by a Provider: Feb 18, 2019 Time Seen by a Provider: 16:22 Subjective/Events-last exam Occasional blood in stool. Hgb 8 No abdominal pain. Concerned with going home. Denies n/v fever sweats chills shortness of breath or chest pain. No new complaints. Objective Exam Vital Signs Date Time Temp Pulse Resp B/P (MAP) Pulse Ox O2 Delivery O2 Flow Rate FiO2 02/18/19 16:00 36.5 56 18 110/62 (78) 95 Room Air 02/18/19 13:35 37.1 02/18/19 12:40 63 16 119/72 (88) 99 Room Air 02/18/19 11:35 Room Air 02/18/19 09:18 Room Air 02/18/19 08:00 36.5 65 18 138/75 (96) 97 Room Air 02/18/19 08:00 Room Air 02/18/19 03:46 37.0 68 16 125/68 (87) 97 Room Air 02/18/19 03:39 Room Air 02/18/19 00:17 Room Air 02/17/19 23:48 37.0 62 20 132/75 (94) 98 Room Air 02/17/19 21:00 Room Air 02/17/19 20:00 37.3 61 18 129/74 (92) 97 Room Air 02/17/19 20:00 Room Air I & O 02/18/19 07:00 Intake Total 3845 ml Output Total 700 ml Balance 3145 ml Capillary Refill : Less Than 3 SecondsLess Than 3 Seconds General Appearance: No Apparent Distress, WD/WN HEENT: PERRL/EOMI, Normal ENT Inspection, Other (edentulous) Neck: Full Range of Motion, Normal Inspection, Non Tender, Supple Respiratory: Chest Non Tender, No Accessory Muscle Use, No Respiratory Distress Cardiovascular: Regular Rate, Rhythm, Normal Peripheral Pulses Gastrointestinal: non tender, soft, no organomegaly Extremity: Normal Capillary Refill, Normal Inspection, Non Tender, No Calf Tenderness Neurologic/Psychiatric: Alert, Oriented x3, No Motor/Sensory Deficits, Normal Mood/Affect, brass buffer II-XII Norm as Tested Skin: Warm/Dry, Pallor Lymphatic: No Adenopathy Results Lab Laboratory Tests 02/18/19 04:15: White Blood Count 5.1, Red Blood Count 2.77L, Hemoglobin 8.0L, Hematocrit 24L, Mean Corpuscular Volume 88, Mean Corpuscular Hemoglobin 29, Mean Corpuscular Hemoglobin Concent 33, Red Cell Distribution Width 13.4, Platelet Count 120L, Mean Platelet Volume 9.7, Neutrophils (%) (Auto) 59, Lymphocytes (%) (Auto) 30, Monocytes (%) (Auto) 8, Eosinophils (%) (Auto) 3, Basophils (%) (Auto) 0, Neutrophils # (Auto) 3.0, Lymphocytes # (Auto) 1.5, Monocytes # (Auto) 0.4, Eosinophils # (Auto) 0.2, Basophils # (Auto) 0.0, Sodium Level 141, Potassium Level 3.8, Chloride Level 111H, Carbon Dioxide Level 21, Anion Gap 9, Blood Urea Nitrogen 11, Creatinine 1.11, Estimat Glomerular Filtration Rate > 60, BUN/Creatinine Ratio 10, Glucose Level 96, Calcium Level 8.0L, Corrected Calcium 8.6, Total Bilirubin 0.4, Aspartate Amino Transf (AST/SGOT) 13, Alanine Aminotransferase (ALT/SGPT) 16, Alkaline Phosphatase 35L, Total Protein 4.8L, Albumin 3.3 Assessment/Plan Assessment/Plan Assessment/Plan Rectal Bleed Anemia colon polyp Hg 8 will follow. CBC in am Clear liquid diet. Transfuse prbc if needed. Colon prep with GO-lytely tomorrow Npo after midnight Sunday and plan lap hand assisted lar he understands all risks and benefits along with family. Clinical Quality Measures DVT/VTE Risk/Contraindication: Risk Factor Score Per Nursin RFS Level Per Nursing on Admit: 2=Moderate NALINI LAND DO Feb 18, 2019 16:24
[2019-02-18 20:00] VITALS: BP 126/72
[2019-02-19] VITALS (7 sets, daily range): BP systolic 100–160; BP diastolic 59–80
--- NOTE | 2019-02-19 00:15 | NUR ---
RECEIVED REPORT FROM ROSIE WILSON. THIS RN TO ASSUME CARE OF PT AT THIS TIME.
[2019-02-19 04:15] LABS: BASOPHILS % (AUTO) 0 % (0-10); EOSINOPHILS # (AUTO) 0.2 10^3/uL (0.0-0.3); EOSINOPHILS % (AUTO) 4 % (0-10); HEMATOCRIT 23 % (40-54); HEMOGLOBIN 7.6 G/DL (13.3-17.7); LYMPHOCYTES # (AUTO) 1.4 X 10^3 (1.0-4.0); LYMPHOCYTES % (AUTO) 24 % (12-44); MEAN CORPUSCULAR HEMOGLOBIN 29 PG (25-34); MEAN CORPUSCULAR HGB CONC 33 G/DL (32-36); MEAN CORPUSCULAR VOLUME 88 FL (80-99); MEAN PLATELET VOLUME 9.7 FL (7.4-10.4); MONOCYTES # (AUTO) 0.4 X 10^3 (0.0-1.0); MONOCYTES % (AUTO) 7 % (0-12); NEUTROPHILS # (AUTO) 3.8 X 10^3 (1.8-7.8); NEUTROPHILS % (AUTO) 66 % (42-75); PLATELET COUNT 118 10^3/uL (130-400); RED CELL DISTRIBUTION WIDTH 13.1 % (10.0-14.5); WHITE BLOOD COUNT 5.7 10^3/uL (4.3-11.0)
[2019-02-19 04:31] LABS: ALANINE AMINOTRANSFERASE 15 U/L (0-55); ALKALINE PHOSPHATASE 35 U/L (40-136); BILIRUBIN,TOTAL 0.4 MG/DL (0.1-1.0); BUN/CREATININE RATIO 7; CALCIUM 7.8 MG/DL (8.5-10.1); CARBON DIOXIDE 21 MMOL/L (21-32); CHLORIDE 112 MMOL/L (98-107); CREATININE SERUM 1.09 MG/DL (0.60-1.30); GFR ESTIMATED > 60; GLUCOSE 96 MG/DL (70-105); POTASSIUM 3.8 MMOL/L (3.6-5.0); SODIUM 141 MMOL/L (135-145); TOTAL PROTEIN 4.6 GM/DL (6.4-8.2)
[2019-02-19] MEDS: LACTATED RINGERS 1,000 ML IV SCH ×3 (04:33→19:57)
[2019-02-19] MEDS ORDERED: GOLYTELY POWDER 4000 ML BTL PO NR (08:00)
[2019-02-19] MEDS: FAMOTIDINE 20MG/2ML IV (PEPCID) IVP SCH ×2 (08:37→19:57)
[2019-02-19] MEDS: GABAPENTIN 300 MG (NEURONTIN) CAP PO SCH ×3 (08:37→19:57)
--- NOTE | 2019-02-19 12:01 | Progress Note - Hospitalist ---
Subjective HPI/CC On Admission Date Seen by Provider: Feb 19, 2019 Time Seen by Provider: 10:30 this is an 78-year-old white male who had had a colonoscopy approximately 3 weeks prior to this presentation. Dr. Cardoza had done this procedure. 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 The patient had been doing well without problems until yesterday when he noticed that he had an urgency to defecate and found that he had a great deal of rectal bleeding. He became dizzy and diaphoretic and almost passed out several times as the patient continued. He presented to the [facility] room with similar complaints with an elevated white count of 17,000 and hemoglobin of 12. Overnight even though the bleeding has slowed down the hemoglobin has dropped to 9.8. He has no complaints of abdominal pain or issues related to that other than the near syncopal episodes associated with the bleeding. Subjective/Events-last exam Patient bleeding a bit during the colon prep earlier today Completed the [employer] Daughter at bedside No pain is reported Colon resection scheduled for late tomorrow morning Reviewed meds and labs Conferred with [employer] mechanical of Systems General: Fatigue Gastrointestinal: Melena, Hematochezia Objective Exam Vital Signs Vital Signs Date Time Temp Pulse Resp B/P (MAP) Pulse Ox O2 Delivery O2 Flow Rate FiO2 02/19/19 13:15 Room Air 02/19/19 12:45 37.1 72 18 150/77 (101) 98 02/17/19 04:00 2.00 Capillary Refill : Less Than 3 SecondsLess Than 3 Seconds General Appearance: No Apparent Distress, WD/WN, Chronically ill Respiratory: Chest Non Tender, Lungs Clear, Normal Breath Sounds, No Accessory Muscle Use, No Respiratory Distress Cardiovascular: Regular Rate, Rhythm, No Edema, No Gallop, No JVD, No Murmur, Normal Peripheral Pulses Neurologic/Psychiatric: Alert, Oriented x3, No Motor/Sensory Deficits, Normal Mood/Affect Results/Procedures Lab Laboratory Tests 02/19/19 03:52 Patient resulted labs reviewed. Imaging: Reviewed Imaging Report Assessment/Plan Assessment and Plan Assess & Plan/Chief Complaint Assessment: Melena Colon mass Anemia due to acute blood loss Alcohol use Plan: Dr. Cardoza to perform partial colon resection after prep today Too high risk for severe hemorrhage if colon prep done at home so maintain inpatient status Alcohol withdrawal and monitoring Diagnosis/Problems Diagnosis/Problems (1) GI (gastrointestinal bleed) (2) Bleeding per rectum (3) Acute blood loss anemia Status: Acute (4) Hypotension Status: Acute Qualifiers: Hypotension type: hypotension due to hypovolemia Qualified Codes: I95.89 - Other hypotension; E86.1 - Hypovolemia (5) Rectal polyp Status: Acute Clinical Quality Measures DVT/VTE Risk/Contraindication: Risk Factor Score Per Nursin RFS Level Per Nursing on Admit: 2=Moderate MAGNUS MERLOS DO Feb 19, 2019 12:01
--- NOTE | 2019-02-19 13:11 | Progress Note - Surgery ---
Subjective Time Seen by a Provider: 11:49 Subjective/Events-last exam Pt seen and examined, he has already finished his golytely and is going to the bathroom. He is on liquid diet. Denies abdominal pain, states he is ready for surgery tomorrow. He asked some questions about surgery; timing and procedure itself. Review of Systems General: No Chills, No Night Sweats Pulmonary: No Dyspnea, No Cough Cardiovascular: No: Chest Pain, Palpitations Gastrointestinal: No: Nausea, Vomiting, Abdominal Pain Objective Exam Vital Signs Date Time Temp Pulse Resp B/P (MAP) Pulse Ox O2 Delivery O2 Flow Rate FiO2 02/19/19 12:45 37.1 72 18 150/77 (101) 98 02/19/19 08:45 Room Air 02/19/19 07:22 37.5 63 19 123/69 (87) 95 02/19/19 04:00 37.2 62 16 136/77 (96) 95 Room Air 02/19/19 00:00 36.5 60 16 100/59 (73) 95 Room Air 02/18/19 21:00 Room Air 02/18/19 20:00 36.6 58 18 126/72 (90) 96 Room Air 02/18/19 16:00 36.5 56 18 110/62 (78) 95 Room Air 02/18/19 13:35 37.1 I & O 02/19/19 07:00 Intake Total 3300 ml Balance 3300 ml Capillary Refill : Less Than 3 SecondsLess Than 3 Seconds General Appearance: No Apparent Distress, WD/WN HEENT: PERRL/EOMI, Normal ENT Inspection, Other (edentulous) Respiratory: Chest Non Tender, Lungs Clear, No Accessory Muscle Use, No Respiratory Distress Cardiovascular: Regular Rate, Rhythm, Normal Peripheral Pulses Gastrointestinal: non tender, soft, no organomegaly Neurologic/Psychiatric: Alert, Oriented x3 Skin: Warm/Dry, Pallor Results Lab Laboratory Tests 02/19/19 03:52: White Blood Count 5.7, Red Blood Count 2.60L, Hemoglobin 7.6L, Hematocrit 23L, Mean Corpuscular Volume 88, Mean Corpuscular Hemoglobin 29, Mean Corpuscular Hemoglobin Concent 33, Red Cell Distribution Width 13.1, Platelet Count 118L, Mean Platelet Volume 9.7, Neutrophils (%) (Auto) 66, Lymphocytes (%) (Auto) 24, Monocytes (%) (Auto) 7, Eosinophils (%) (Auto) 4, Basophils (%) (Auto) 0, Neutrophils # (Auto) 3.8, Lymphocytes # (Auto) 1.4, Monocytes # (Auto) 0.4, Eosinophils # (Auto) 0.2, Basophils # (Auto) 0.0, Sodium Level 141, Potassium Level 3.8, Chloride Level 112H, Carbon Dioxide Level 21, Anion Gap 8, Blood Urea Nitrogen 8, Creatinine 1.09, Estimat Glomerular Filtration Rate > 60, BUN/Creatinine Ratio 7, Glucose Level 96, Calcium Level 7.8L, Corrected Calcium 8.6, Total Bilirubin 0.4, Aspartate Amino Transf (AST/SGOT) 11, Alanine Aminotransferase (ALT/SGPT) 15, Alkaline Phosphatase 35L, Total Protein 4.6L, Albumin 3.0L Assessment/Plan Assessment/Plan Assessment/Plan Large Colon Polyp Rectal Bleed and Anemia (secondary to above) Plan is Laparoscopic Hand Assisted Colon resection; all questions answered to his satisfaction. Consent signed, NPO after midnight. Surgery should be around 11am. Clinical Quality Measures DVT/VTE Risk/Contraindication: Risk Factor Score Per Nursin RFS Level Per Nursing on Admit: 2=Moderate AUSTIN MONTANO DO Feb 19, 2019 13:11
[2019-02-20] VITALS (14 sets, daily range): BP systolic 129–187; BP diastolic 64–107
[2019-02-20 04:00] LABS: BASOPHILS % (AUTO) 1 % (0-10); EOSINOPHILS # (AUTO) 0.2 10^3/uL (0.0-0.3); EOSINOPHILS % (AUTO) 3 % (0-10); HEMATOCRIT 23 % (40-54); HEMOGLOBIN 7.6 G/DL (13.3-17.7); LYMPHOCYTES # (AUTO) 1.1 X 10^3 (1.0-4.0); LYMPHOCYTES % (AUTO) 18 % (12-44); MEAN CORPUSCULAR HEMOGLOBIN 29 PG (25-34); MEAN CORPUSCULAR HGB CONC 34 G/DL (32-36); MEAN CORPUSCULAR VOLUME 87 FL (80-99); MEAN PLATELET VOLUME 9.2 FL (7.4-10.4); MONOCYTES # (AUTO) 0.5 X 10^3 (0.0-1.0); MONOCYTES % (AUTO) 8 % (0-12); NEUTROPHILS # (AUTO) 4.3 X 10^3 (1.8-7.8); NEUTROPHILS % (AUTO) 72 % (42-75); PLATELET COUNT 130 10^3/uL (130-400); RED CELL DISTRIBUTION WIDTH 13.4 % (10.0-14.5)
[2019-02-20] MEDS: LACTATED RINGERS 1,000 ML IV SCH ×3 (04:18→14:58)
[2019-02-20 04:28] LABS: ALANINE AMINOTRANSFERASE 13 U/L (0-55); ALBUMIN 3.1 GM/DL (3.2-4.5); ALKALINE PHOSPHATASE 40 U/L (40-136); BILIRUBIN,TOTAL 0.5 MG/DL (0.1-1.0); BUN/CREATININE RATIO 5; CALCIUM 7.7 MG/DL (8.5-10.1); CARBON DIOXIDE 20 MMOL/L (21-32); CHLORIDE 111 MMOL/L (98-107); GFR ESTIMATED > 60; GLUCOSE 102 MG/DL (70-105); POTASSIUM 3.6 MMOL/L (3.6-5.0); SODIUM 141 MMOL/L (135-145); TOTAL PROTEIN 4.6 GM/DL (6.4-8.2)
[2019-02-20] MEDS ORDERED: LACTATED RINGERS 1,000 ML IV PRN (07:56)
[2019-02-20] MEDS ORDERED: NS IV 500 ML 500 ML IV SCH (08:00)
[2019-02-20] MEDS: GABAPENTIN 300 MG (NEURONTIN) CAP PO SCH ×3 (08:22→20:03)
[2019-02-20] MEDS: FAMOTIDINE 20MG/2ML IV (PEPCID) IVP SCH ×2 (08:22→21:01)
--- NOTE | 2019-02-20 10:29 | Progress Note - Hospitalist ---
Subjective HPI/CC On Admission Date Seen by Provider: Feb 20, 2019 Time Seen by Provider: 09:15 this is an 78-year-old white male who had had a colonoscopy approximately 3 weeks prior to this presentation. Dr. Cardoza had done this procedure. 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 The patient had been doing well without problems until yesterday when he noticed that he had an urgency to defecate and found that he had a great deal of rectal bleeding. He became dizzy and diaphoretic and almost passed out several times as the patient continued. He presented to the [facility] room with similar complaints with an elevated white count of 17,000 and hemoglobin of 12. Overnight even though the bleeding has slowed down the hemoglobin has dropped to 9.8. He has no complaints of abdominal pain or issues related to that other than the near syncopal episodes associated with the bleeding. Subjective/Events-last exam Pt ready for resection. No more bleeding except for a little bit when he wiped earlier. Dr. Cardoza will take to surgery today. Objective Exam Vital Signs Vital Signs Date Time Temp Pulse Resp B/P (MAP) Pulse Ox O2 Delivery O2 Flow Rate FiO2 02/20/19 20:00 36.7 02/20/19 19:00 76 02/20/19 18:57 OxyMask 4.00 100 02/20/19 18:00 11 147/79 (101) 100 Capillary Refill : Less Than 3 SecondsLess Than 3 Seconds General Appearance: No Apparent Distress, WD/WN Respiratory: Chest Non Tender, Lungs Clear, Normal Breath Sounds, No Accessory Muscle Use, No Respiratory Distress Cardiovascular: Regular Rate, Rhythm, No Edema, No Gallop, No JVD, No Murmur, Normal Peripheral Pulses Neurologic/Psychiatric: Alert, Oriented x3, No Motor/Sensory Deficits, Normal Mood/Affect Results/Procedures Lab Laboratory Tests 02/20/19 03:50 Patient resulted labs reviewed. Imaging: Reviewed Imaging Report Assessment/Plan Assessment and Plan Assess & Plan/Chief Complaint Assessment: Melena Colon mass Anemia due to acute blood loss Alcohol use Plan: Procedure today Diagnosis/Problems Diagnosis/Problems (1) GI (gastrointestinal bleed) (2) Bleeding per rectum (3) Acute blood loss anemia Status: Acute (4) Hypotension Status: Acute Qualifiers: Hypotension type: hypotension due to hypovolemia Qualified Codes: I95.89 - Other hypotension; E86.1 - Hypovolemia (5) Rectal polyp Status: Acute Clinical Quality Measures DVT/VTE Risk/Contraindication: Risk Factor Score Per Nursin RFS Level Per Nursing on Admit: 2=Moderate MAGNUS MERLOS DO Feb 20, 2019 10:29
[2019-02-20] MEDS ORDERED: metroNIDAZOLE 500MG/100ML IVPB 100 ML IV SCH (10:30)
[2019-02-20] MEDS ORDERED: ceFAZolin 2 GM/50 ML NS 50 ML IV SCH (10:30)
[2019-02-20] MEDS ORDERED: BUP/EPI 0.5% 1:200,000 (SENSORCAINE) 30 ML VIAL ONE (10:45)
[2019-02-20] MEDS ORDERED: ONDANSETRON 4 MG/2 ML (SDV) Z0FRAN ONE (10:45)
[2019-02-20] MEDS ORDERED: ROCURONIUM 10 MG/ML 5 ML SYRINGE IV ONE ×2 (10:45→13:54)
[2019-02-20] MEDS ORDERED: fentaNYL INJECTION 100 MCG/2 ML AMP ONE (10:45)
[2019-02-20] MEDS ORDERED: LIDOCAINE PF 2% 5 ML (XYLOCAINE) VIAL ONE (10:45)
[2019-02-20] MEDS ORDERED: SEVOFLURANE (ULTANE) 15 ML INHAL SOLN ONE ×19 (10:45→16:34)
[2019-02-20] MEDS ORDERED: SUCCINYLCHOLINE INJ 100 MG/5 ML SYR ONE (10:45)
[2019-02-20] MEDS ORDERED: proPOfol 200 MG/20 ML (DIPRIVAN) VIAL IV ONE (10:45)
--- NOTE | 2019-02-20 11:00 | NUR ---
Pt leaving floor via bed for procedure with surgery staff.
--- NOTE | 2019-02-20 11:01 | NUR ---
Anointed Today by Fr Dahl.
[2019-02-20] MEDS ORDERED: MIDAZOLAM 2 MG/2 ML (VERSED) VIAL ONE (11:17)
--- NOTE | 2019-02-20 11:17 | Progress Note-Pre Operative ---
Pre-Operative Progress Note H&P Reviewed The H&P was reviewed, patient examined and no changes noted. Date Seen by Provider: Feb 20, 2019 Time Seen by Provider: 11:16 Date H&P Reviewed: Feb 20, 2019 Time H&P Reviewed: 11:16 Pre-Operative Diagnosis: RECTAL MASS NALINI LAND DO Feb 20, 2019 11:16
[2019-02-20] MEDS ORDERED: BUPIVACAINE 0.5% 30 ML (SENSORCAINE) VIAL ONE (13:54)
[2019-02-20] MEDS ORDERED: INDOCYANINE GREEN 25 MG (ICG) VIAL IV ONE (14:24)
[2019-02-20] MEDS ORDERED: morphine INJ 10 MG/ML 1ML (SYR OR VIAL) ONE (15:09)
[2019-02-20] MEDS ORDERED: ceFAZolin INJECTION 2,000 MG ONE (15:19)
[2019-02-20] MEDS ORDERED: GLYCOPYRROLATE 0.2 MG/ML (ROBINUL) 2 ML VIAL ONE (15:43)
[2019-02-20] MEDS ORDERED: NEOSTIGMINE 3 MG/3 ML VIAL ONE (15:43)
[2019-02-20] MEDS ORDERED: ONDANSETRON 4 MG/2 ML (SDV) Z0FRAN IVP PRN (16:00)
[2019-02-20] MEDS ORDERED: fentaNYL INJECTION 100 MCG/2 ML AMP IVP ONE (16:00)
[2019-02-20] MEDS ORDERED: morphine INJ 10 MG/ML 1ML (SYR OR VIAL) IVP ONE (16:00)
[2019-02-20] MEDS ORDERED: HYDROmorphone 2 MG/ML VIAL (DILAUDID) IV ONE (16:00)
[2019-02-20] MEDS ORDERED: MEPERIDINE (DEMEROL) INJ 50 MG/ML IVP ONE (16:00)
--- NOTE | 2019-02-20 16:00 | NUR ---
This nurse gave SBAR report to Enedina VELEZ, ICU.
[2019-02-20] MEDS ORDERED: MEPERIDINE (DEMEROL) INJ 50 MG/ML ONE (16:41)
--- NOTE | 2019-02-20 16:59 | Progress Note-Post Operative ---
Post-Operative Progess Note Surgeon (s)/Inpatient Nursing Aide (s) Surgeon NALINI LAND DO Inpatient Nursing Aide: Kelly Pre-Operative Diagnosis RECTAL MASS Post-Operative Diagnosis same Procedure & Operative Findings Date of Procedure 02/20/19 Procedure Performed/Findings lap hand assisted low anterior resection Anesthesia Type gen Estimated Blood Loss Estimated blood loss (mL): 100mL Specimens/Packing Specimens Removed sigmoid/rectum NALINI LAND DO Feb 20, 2019 16:59
[2019-02-20] MEDS: ceFAZolin 2 GM/50 ML NS 50 ML IV SCH (18:19)
--- NOTE | 2019-02-20 18:38 | NUR ---
1710 CARE OF PT TO THIS RN, REPORT RECEIVED FROM PAR NURSE Lenora PASTOR RN. PT DROWSY AWAKENS TO VERBAL STIMULI, PT ON 4 LITERS SIMPLE MASK SA02 95%, ABDOMEN ROUND, SOFT, SLIGHTLY DISTENDED MIDLINE DRESSING NOTED TO HAVE MINIMAL AMOUNT OF SEROSANGINEOUS DRAINAGE NOTED- THIS RN MARKED AREA, PT ALSO NOTED TO HAVE 3 LAP SITES WITH BAND AID DRESSING D/I. PT RESTING QUIETLY DENIES PAIN AT THIS TIME. DR LAND ON FLOOR AND ORDERS TO REMAIN NPO RECEIVED. CALL LIGHT AND OTHER PERSONAL ITEMS WITHIN REACH WILL CONTINUE TO MONITOR.
[2019-02-20] MEDS: metroNIDAZOLE 500MG/100ML IVPB 100 ML IV SCH (21:01)
--- NOTE | 2019-02-20 23:43 | OPERATIVE REPORT ---
DATE OF SERVICE: 02/20/2019 PREOPERATIVE DIAGNOSES: Rectal mass. Lower gastrointestinal bleed. POSTOPERATIVE DIAGNOSES: Rectal mass. Lower gastrointestinal bleed. PROCEDURE: Laparoscopic hand-assisted low anterior resection. SURGEON: Nalini Cardoza DO DISTRIBUTION SYSTEM OPERATOR: Dr. Mendoza, assisted in retraction, dissection and closure. ANESTHESIA: General. ESTIMATED BLOOD LOSS: 100 mL. COMPLICATIONS: None. INDICATIONS: The patient is an 78-year-old male who had recent colonoscopy demonstrating a rectal mass. 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 It was attempted to be snared; however, it was not able to be successfully snared and was planning outpatient colon resection. The patient was admitted due to a lower GI bleed. The patient was discussed risks and benefits of procedure and wished to proceed with procedure. Consent was signed and on the chart. DESCRIPTION OF PROCEDURE: The patient was taken to the operating suite. He was prepped and draped in sterile fashion. Timeout was performed. Midline incision was made around the umbilicus for hand port. Once the abdomen was entered, a hand port was placed and pneumoperitoneum was achieved. Under direct visualization of the laparoscope, a 12 mm trocar was placed in the right lower quadrant and a 12 mm trocar was placed in the left lower quadrant. The sigmoid colon was then mobilized along the white line of Toldt. The spatula Bovie was then used to mobilize the rectum on both left and right lateral side, freeing the rectum and then bluntly dissecting with my hand further around the distal portion of the rectum. An Endo-TEETEE was used to come across the proximal portion of the rectosigmoid junction. Then LigaSure was then used to begin dividing the mesentery. The tattoo was visualized, but was more distal to assure that the rectal mass was removed. Dr. Mendoza went below and visualized with the proctoscope. This was begun to be divided; however, we need to go further down. Therefore, further dissection was carried down distally. The colonoscope was then utilized as well and an Endo-TEETEE 60 stapler was then used to fire across the distal portion visually removing it by endoscopy. The specimen was removed and a suture was placed on the proximal portion of the colon. The pelvis was then packed and the distal portion of the sigmoid was then brought up through the midline incision. A pursestring suture was then fired across and a 29 EEA stapler was utilized. The anvil was inserted into the pursestring suture and this was then tied around the anvil. The fat around the colon was then freed up for better anastomosis. Once this was performed, Dr. Mendoza went down below again and inserted the stapler into the rectum and brought the staple load out. The anastomosis was then formed and fired obtaining two good rings both proximal and distal. Leak test was performed with the colonoscope demonstrating no bubbles once the pelvis was full of fluid. No bubbles were performed. The abdomen was then irrigated and suctioned. All the sponge, needle and instrument counts were correct. A 1-0 looped PDS was then used to close the midline incision in a running fashion. The wounds were then irrigated and the skin was then closed with kevin. The patient tolerated procedure well without any complications. He was taken to recovery room in stable condition. Job ID: [id number] DocumentID: [id number] Dictated Date: 02/20/2019 18:28:18 Corporation Officer Date: 02/20/2019 23:42:09 Dictated By: NALINI CARDOZA DO
[2019-02-21] VITALS (12 sets, daily range): BP systolic 131–161; BP diastolic 68–90
[2019-02-21] MEDS: inSUlin ASPART (NovoLOG) 1 UNIT/0.01 ML (CHARGE PER UNIT) SQ SCH ×4 (00:02→18:25)
--- NOTE | 2019-02-21 02:54 | NUR ---
This RN notified EICU of patient's ETC02 between 9-25 with respirations between 14-18, pt is alert to person, place, time and situation. New order received at this time for stat ABG.
[2019-02-21] MEDS: LACTATED RINGERS 1,000 ML IV SCH ×3 (03:22→20:28)
[2019-02-21] MEDS: ceFAZolin 2 GM/50 ML NS 50 ML IV SCH (03:23)
[2019-02-21 04:08] LABS: ABG BASE EXCESS -0.6 MMOL/L (-2.5-2.5); ABG OXYGEN SATURATION 98 % (94-100); ABG PCO2 36 MMHG (35-45); ABG PH 7.43 (7.37-7.43); ABG PO2 91 MMHG (79-93); ABG TCO2 24.3 MMOL/L (21.0-31.0)
[2019-02-21 04:18] LABS: BASOPHILS % (AUTO) 0 % (0-10); EOSINOPHILS % (AUTO) 0 % (0-10); HEMATOCRIT 27 % (40-54); LYMPHOCYTES # (AUTO) 0.8 X 10^3 (1.0-4.0); LYMPHOCYTES % (AUTO) 7 % (12-44); MEAN CORPUSCULAR HEMOGLOBIN 30 PG (25-34); MEAN CORPUSCULAR HGB CONC 33 G/DL (32-36); MEAN CORPUSCULAR VOLUME 89 FL (80-99); MEAN PLATELET VOLUME 10.2 FL (7.4-10.4); MONOCYTES # (AUTO) 0.7 X 10^3 (0.0-1.0); MONOCYTES % (AUTO) 6 % (0-12); NEUTROPHILS % (AUTO) 87 % (42-75); PLATELET COUNT 163 10^3/uL (130-400); RED CELL DISTRIBUTION WIDTH 13.8 % (10.0-14.5); WHITE BLOOD COUNT 11.6 10^3/uL (4.3-11.0)
[2019-02-21 04:20] LABS: ALLENS TEST POSITIVE
[2019-02-21 04:21] LABS: INSPIRED O2 7L; PATIENT TEMP 37.1; VENTILATOR NO
--- NOTE | 2019-02-21 04:42 | Pulmonary Consultation ---
History of Present Illness History of Present Illness Date Seen by Provider: Feb 20, 2019 (late note today is 3. ) Time Seen by Provider: 07:04 Date of Admission Allergies and Home Medications Allergies Coded Allergies: No Known Drug Allergies (Unverified , 06/04/18) Home Medications Aspirin 325 Mg Tablet.dr, 325 MG PO DAILY Prescribed by: WOLFGANG CAMPUZANO on 02/16/19 1340 Gabapentin 300 Mg Capsule, 300 MG PO TID, (Reported) Lisinopril/Hydrochlorothiazide 1 Each Tablet, 1 TAB PO DAILY, (Reported) Simvastatin 40 Mg Tablet, 40 MG PO HS, (Reported) Past Ltiezcv-Jjlzsr-Veeeyt Hx Past Med/Social Hx: Reviewed Nursing Past Med/Soc Hx, Reviewed and Corrections made Patient Social History Alcohol Use: Denies Use Number of Drinks Today: AA Alcohol Beverage of Choice: Beer Recreational Drug Use: No Smoking Status: Former Smoker (quit in 1970) Former Smoker, Quit: Jan 19, 1953 Recent Foreign Travel: No Contact w/Someone Who Travel: No Recent Infectious Disease Expo: No Recent Hopitalizations: No Immunizations Up To Date Date of Pneumonia Vaccine: Feb 15, 2018 Date of Influenza Vaccine: Oct 21, 2018 Seasonal Allergies Seasonal Allergies: No Past Medical History Surgeries: Yes Orthopedic Respiratory: No Cardiac: Yes High Cholesterol, Hypertension Neurological: No Genitourinary: No Gastrointestinal: Yes Pancreatitis, Polyps (large rectal polyp, pathology revealed tubulovillous adenoma) Musculoskeletal: No Endocrine: No HEENT: No Cataract Cancer: 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) Psychosocial: No Integumentary: Yes (SKIN CANCER) Family Medical History Cancer (brother had cancer of jaw), CAD Over 55 Years Old, Hypertension Sepsis Event Evaluation Height, Weight, BMI Height: 5'7.00" Weight: 216lbs. oz. 97.808127dw; 35.62 BMI Method:Stated Exam Exam Vital Signs Date Time Temp Pulse Resp B/P (MAP) Pulse Ox O2 Delivery O2 Flow Rate FiO2 02/21/19 04:00 86 19 99 OxyMask 3.00 02/21/19 03:00 85 18 99 OxyMask 3.00 02/21/19 02:00 78 18 139/73 (95) 98 OxyMask 3.00 02/21/19 01:00 82 14 134/72 (92) 97 OxyMask 3.00 02/21/19 01:00 84 02/21/19 00:04 37.0 02/21/19 00:03 37.0 02/21/19 00:00 81 14 132/72 (92) 97 OxyMask 3.00 02/20/19 23:00 84 14 142/68 (92) 96 OxyMask 3.00 02/20/19 22:00 82 14 136/66 (89) 95 OxyMask 3.00 02/20/19 21:00 92 15 159/91 (113) 100 OxyMask 3.00 02/20/19 20:00 79 13 141/64 (89) 98 OxyMask 3.00 02/20/19 20:00 36.7 02/20/19 20:00 36.7 02/20/19 19:00 76 12 155/86 (109) 100 OxyMask 3.00 02/20/19 19:00 76 02/20/19 18:57 OxyMask 4.00 100 02/20/19 18:00 70 11 147/79 (101) 100 Room Air 02/20/19 17:15 100 Simple Mask 4.00 02/20/19 17:10 36.5 14 129/76 (93) 97 OxyMask 4 02/20/19 17:10 OxyMask 4 02/20/19 17:00 OxyMask 4 02/20/19 17:00 73 11 129/76 (93) 98 Room Air 02/20/19 17:00 16 155/90 (111) 98 OxyMask 4 02/20/19 16:50 16 171/89 (116) 99 OxyMask 6 02/20/19 16:45 OxyMask 6 02/20/19 16:40 16 187/107 (133) 99 OxyMask 10 02/20/19 16:35 OxyMask 10 02/20/19 16:30 18 145/86 (105) 99 OxyMask 10 02/20/19 16:30 84 19 145/86 (105) 100 Room Air 02/20/19 16:24 83 02/20/19 16:20 OxyMask 10 02/20/19 16:20 37.3 18 137/79 (98) 98 OxyMask 10 02/20/19 12:00 Room Air 1/2/20 09:00 Room Air 02/20/19 08:00 36.9 63 16 143/80 (101) 96 Room Air I & O 02/21/19 07:00 Intake Total 1370 ml Output Total 320 ml Balance 1050 ml Height & Weight Height: 5'7.00" Weight: 216lbs. oz. 97.764156sa; 35.62 BMI Method:Stated General Appearance: No Apparent Distress, WD/WN HEENT: PERRL/EOMI, Normal ENT Inspection, Other (edentulous) Respiratory: Chest Non Tender, Lungs Clear, Normal Breath Sounds, No Accessory Muscle Use, No Respiratory Distress Cardiovascular: Regular Rate, Rhythm, No Edema, No Gallop, No JVD, No Murmur, Normal Peripheral Pulses Capillary Refill: Less Than 3 Seconds Gastrointestinal: non tender, soft, no organomegaly Neurologic/Psychiatric: Alert, Oriented x3, No Motor/Sensory Deficits, Normal Mood/Affect Skin: Warm/Dry, Pallor Results Lab Laboratory Tests 02/20/19 03:50 02/21/19 03:04 Assessment/Plan Assessment/Plan Rectal mass s/p resection -Surgery following - s/p rectal bleeding Anemia -Monitor TOMMIE BUITRAGO DO Feb 21, 2019 04:42
[2019-02-21 04:44] LABS: CALCIUM 7.5 MG/DL (8.5-10.1); CREATININE SERUM 1.24 MG/DL (0.60-1.30); MAGNESIUM 1.4 MG/DL (1.6-2.4); PHOSPHORUS 3.9 MG/DL (2.3-4.7); POTASSIUM 4.3 MMOL/L (3.6-5.0)
[2019-02-21] MEDS ORDERED: niCARdipine IV FOR DRIP 50 MG KIT ONE (04:44)
[2019-02-21] MEDS ORDERED: NS (IVPB) 250 ML ONE (04:44)
[2019-02-21] MEDS: POTASSIUM CL 10MEQ/50ML IVPB 50 ML IV SCH (05:18)
[2019-02-21] MEDS: metroNIDAZOLE 500MG/100ML IVPB 100 ML IV SCH (05:18)
[2019-02-21] MEDS: KCL 20 MEQ TAB (K-DUR) PO SCH (05:19)
[2019-02-21] MEDS: MAGNESIUM 1 GM/100 ML IVPB 100 ML IV SCH ×3 (05:19→08:54)
[2019-02-21] MEDS ORDERED: KCL 20 MEQ TAB (K-DUR) PO SCH (06:00)
[2019-02-21] MEDS ORDERED: POTASSIUM CL 10MEQ/50ML IVPB 50 ML IV SCH (06:00)
[2019-02-21] MEDS ORDERED: MAGNESIUM 1 GM/100 ML IVPB 100 ML IV SCH (06:00)
--- NOTE | 2019-02-21 07:05 | Pulmonary Progress Note ---
Subjective Time Seen by a Provider: 07:04 Subjective/Events-last exam PT is doing better. Sepsis Event Evaluation Height, Weight, BMI Height: 5'7.00" Weight: 216lbs. oz. 97.301925hy; 35.62 BMI Method:Stated Exam Exam Vital Signs Date Time Temp Pulse Resp B/P (MAP) Pulse Ox O2 Delivery O2 Flow Rate FiO2 02/21/19 06:52 37.1 02/21/19 06:00 75 13 132/71 (91) 100 OxyMask 3.00 02/21/19 05:00 77 15 131/68 (89) 100 OxyMask 3.00 02/21/19 04:00 86 19 99 OxyMask 3.00 02/21/19 04:00 37.6 02/21/19 03:00 85 18 99 OxyMask 3.00 02/21/19 02:00 78 18 139/73 (95) 98 OxyMask 3.00 02/21/19 01:00 82 14 134/72 (92) 97 OxyMask 3.00 02/21/19 01:00 84 02/21/19 00:04 37.0 02/21/19 00:03 37.0 02/21/19 00:00 81 14 132/72 (92) 97 OxyMask 3.00 02/20/19 23:00 84 14 142/68 (92) 96 OxyMask 3.00 02/20/19 22:00 82 14 136/66 (89) 95 OxyMask 3.00 02/20/19 21:00 92 15 159/91 (113) 100 OxyMask 3.00 02/20/19 20:00 79 13 141/64 (89) 98 OxyMask 3.00 02/20/19 20:00 36.7 02/20/19 20:00 36.7 02/20/19 20:00 OxyMask 3.00 02/20/19 19:00 76 12 155/86 (109) 100 OxyMask 3.00 02/20/19 19:00 76 02/20/19 18:57 OxyMask 4.00 100 02/20/19 18:00 70 11 147/79 (101) 100 Room Air 02/20/19 17:15 100 Simple Mask 4.00 02/20/19 17:10 36.5 14 129/76 (93) 97 OxyMask 4 02/20/19 17:10 OxyMask 4 02/20/19 17:00 OxyMask 4 02/20/19 17:00 73 11 129/76 (93) 98 Room Air 02/20/19 17:00 16 155/90 (111) 98 OxyMask 4 02/20/19 16:50 16 171/89 (116) 99 OxyMask 6 02/20/19 16:45 OxyMask 6 02/20/19 16:40 16 187/107 (133) 99 OxyMask 10 02/20/19 16:35 OxyMask 10 02/20/19 16:30 18 145/86 (105) 99 OxyMask 10 02/20/19 16:30 84 19 145/86 (105) 100 Room Air 02/20/19 16:24 83 02/20/19 16:20 OxyMask 10 02/20/19 16:20 37.3 18 137/79 (98) 98 OxyMask 10 02/20/19 12:00 Room Air 02/20/19 09:00 Room Air 02/20/19 08:00 36.9 63 16 143/80 (101) 96 Room Air I & O 02/21/19 07:00 Intake Total 1370 ml Output Total 845 ml Balance 525 ml Height & Weight Height: 5'7.00" Weight: 216lbs. oz. 97.016510up; 35.62 BMI Method:Stated General Appearance: No Apparent Distress, WD/WN HEENT: PERRL/EOMI, Normal ENT Inspection, Other (edentulous) Respiratory: Chest Non Tender, Lungs Clear, Normal Breath Sounds, No Accessory Muscle Use, No Respiratory Distress Cardiovascular: Regular Rate, Rhythm, No Edema, No Gallop, No JVD, No Murmur, Normal Peripheral Pulses Capillary Refill: Less Than 3 Seconds Gastrointestinal: non tender, soft, no organomegaly Neurologic/Psychiatric: Alert, Oriented x3, No Motor/Sensory Deficits, Normal Mood/Affect Skin: Warm/Dry, Pallor Results Lab Laboratory Tests 02/20/19 03:50 02/21/19 03:04 Assessment/Plan Assessment/Plan Rectal mass s/p resection -Surgery following s/p rectal bleeding Anemia -Monitor TOMMIE BUITRAGO DO Feb 21, 2019 07:05
--- NOTE | 2019-02-21 07:27 | Anesthesia-General Post-Op ---
General Patient Condition Mental Status/LOC: Same as Preop Cardiovascular: Satisfactory Nausea/Vomiting: Absent Respiratory: Satisfactory Pain: Controlled Complications: Absent Post Op Complications Complications None Follow Up Care/Instructions Patient Instructions None needed. Anesthesia/Patient Condition Patient Condition Patient is doing well, no complaints, stable vital signs, no apparent adverse anesthesia problems. No complications reported per nursing. D/C home per [facility] Criteria: TIKA Swenson CRNA Feb 21, 2019 07:27
--- NOTE | 2019-02-21 08:34 | Diagnostic Imaging Report ---
INDICATION: Hypotension. Portable chest 3:15 AM. Heart size and pulmonary vascularity are normal. Lungs are clear. There are no effusions or pneumothoraces. IMPRESSION: No acute abnormalities in the chest. Dictated by: Dictated on workstation # [id number]
[2019-02-21] MEDS: GABAPENTIN 300 MG (NEURONTIN) CAP PO SCH ×3 (08:54→20:27)
[2019-02-21] MEDS: FAMOTIDINE 20MG/2ML IV (PEPCID) IVP SCH ×2 (08:54→20:32)
[2019-02-21] MEDS: morphine INJ 4 MG/ML 1 ML (VIAL/SYRINGE) IVP PRN ×4 (09:08→20:28)
--- NOTE | 2019-02-21 09:20 | NUR ---
report given to Apurva VELEZ
--- NOTE | 2019-02-21 09:35 | NUR ---
PT ICU TRANSFER TO ROOM 423. PT SITTING UP IN RECLINER. ENCOURAGED USE OF INCENTIVE. SCANT DRIED BLOOD NOTED TO MIDLINE INCISION WITH X3 LAP SITES TO ABDOMEN. PT REPORTS PAIN TOLERABLE AT 5/10. PT WAS ORIENTED TO ROOM, CALL LIGHT WITHIN REACH. PT VOICED NEEDS WERE MET AT THIS TIME.
--- NOTE | 2019-02-21 11:10 | Progress Note - Hospitalist ---
Subjective HPI/CC On Admission Date Seen by Provider: Feb 21, 2019 Time Seen by Provider: 10:30 this is an 78-year-old white male who had had a colonoscopy approximately 3 weeks prior to this presentation. Dr. Cardoza had done this procedure. 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 The patient had been doing well without problems until yesterday when he noticed that he had an urgency to defecate and found that he had a great deal of rectal bleeding. He became dizzy and diaphoretic and almost passed out several times as the patient continued. He presented to the [facility] room with similar complaints with an elevated white count of 17,000 and hemoglobin of 12. Overnight even though the bleeding has slowed down the hemoglobin has dropped to 9.8. He has no complaints of abdominal pain or issues related to that other than the near syncopal episodes associated with the bleeding. Subjective/Events-last exam Pt remains NPO Fainted a bit when he got into his chair in the ICU No more bleeding Labs remain stable Hemoglobin of 9.0 Colon resection uncomplicated Review of Systems Gastrointestinal: Abdominal Pain Objective Exam Vital Signs Vital Signs Date Time Temp Pulse Resp B/P (MAP) Pulse Ox O2 Delivery O2 Flow Rate FiO2 02/21/19 20:00 37.8 90 20 161/80 (107) 94 Room Air 02/21/19 09:00 3.00 02/20/19 18:57 100 Capillary Refill : Less Than 3 SecondsLess Than 3 Seconds General Appearance: No Apparent Distress, WD/WN Respiratory: Chest Non Tender, Lungs Clear, Normal Breath Sounds, No Accessory Muscle Use, No Respiratory Distress Cardiovascular: Regular Rate, Rhythm, No Edema, No Gallop, No JVD, No Murmur, Normal Peripheral Pulses Neurologic/Psychiatric: Alert, Oriented x3, No Motor/Sensory Deficits, Normal Mood/Affect Results/Procedures Lab Laboratory Tests 02/21/19 03:04 Patient resulted labs reviewed. Imaging: Reviewed Imaging Report Assessment/Plan Assessment and Plan Assess & Plan/Chief Complaint Assessment: Melena Colon mass s/p resection Anemia due to acute blood loss Alcohol use Plan: recovery Diagnosis/Problems Diagnosis/Problems (1) GI (gastrointestinal bleed) (2) Bleeding per rectum (3) Acute blood loss anemia Status: Acute (4) Hypotension Status: Acute Qualifiers: Hypotension type: hypotension due to hypovolemia Qualified Codes: I95.89 - Other hypotension; E86.1 - Hypovolemia (5) Rectal polyp Status: Acute Clinical Quality Measures DVT/VTE Risk/Contraindication: Risk Factor Score Per Nursin RFS Level Per Nursing on Admit: 2=Moderate MAGNUS MERLOS DO Feb 21, 2019 11:10
--- NOTE | 2019-02-21 11:42 | Physical Therapy Evaluation ---
PT Evaluation-General Medical Diagnosis Admission Date Feb 15, 2019 at 19:20 Medical Diagnosis: rectal bleed/hypotension Onset Date: Feb 15, 2019 Therapy Diagnosis Therapy Diagnosis: debility/weakness Height/Weight Height (Feet): 5 Height (Inches): 7.00 Weight (Pounds): 216 Precautions Precautions/Isolations: Standard Precautions Weight Bear Status Right Lower Extremity: Right Full Weight Bearing Left Lower Extremity: Left Full Weight Bearing Referral Physician: Sony Reason for Referral: Evaluation/Treatment Medical History Pertinent Medical History: HTN Additional Medical History recently diagnosis with large tubulovillous adenoma Current History ER with rectal bleeding Reviewed History: Yes Social History Home: Single Level Current Living Status: Alone Entry Into Home: Stairs With Railing PT Steps Into Home: 5 Prior Prior Level of Function SCALE: Activities may be completed with or without assistive devices. 9-Bbirktwvdx-xkkrhqy completes the activity by him/herself with no assistance from a helper. 5-Set-up or Clean-up Assistance-helper sets up or cleans up; patient completes activity. Rosalia assists only prior to or following the activity. 4-Supervision or Touching Assistance-helper provides verbal cues and/or touching/steadying and/or contact guard assistance as patient completes activity. Assistance may be provided throughout the activity or intermittently. 3-Partial/Moderate Assistance-helper does LESS THAN HALF the effort. Rosalia lifts, holds or supports trunk or limbs, but provides less than half the effort. 2-Substantial/Maximal Assistance-helper does MORE THAN HALF the effort. Rosalia lifts or holds trunk or limbs and provides more than half the effort. 6-Cyghonlkj-gmcyru does ALL the effort. Patient does none of the effort to complete the activity. Or, the assistance of 2 or more helpers is required for the patient to complete the activity. If activity was not attempted, code reason: 7-Patient Refused. 9-Not Applicable-not attempted and the patient did not perform the activity before the current illness, exacerbation or injury. 10-Not Attempted due to Environmental Limitations-(lack of equipment, weather restraints, etc.). 88-Not Attempted due to Medical Conditions or Safety Concerns. Bed Mobility: 6 Transfers (B,C,W/C): 6 Gait: 6 Stairs: 6 Indoor Mobility (Ambulation): Independent Stairs: Independent Prior Devices Use: None PT Evaluation-Current Subjective Patient agrees to PT. No c/o at this time. Objective Patient Orientation: Normal For Age Attachments: Oxygen (2L NC) ROM/Strength ROM Lower Extremities bilateral LE WFL Strength Lower Extremities 4-/5 grossly bilateral LE Integumentary/Posture Integumentary refer to nursing notes Bowel Incontinence: No Bladder Incontinence: Chopra Cath Posture slight trunk flexed posture Neuromuscular (Tone, Coordination, Reflexes) grossly intact Sensory Vision: Functional Hearing: Impaired Sensation Right Lower Extremit: Intact Sensation Left Lower Extremity: Intact Transfers Roll Left to Right (QC): 3 Sit to Lying (QC): 3 Lying to Sitting/Side of Bed(Q: 3 Sit to Stand (QC): 3 Chair/Cfi-mv-Gfxvq Xfer(QC): 3 Gait Does the Patient Walk?: Yes Mode of Locomotion: Walk Anticipated Mode of Locomotion: Walk Walk 10 feet (QC): 4 Walk 50 ft with 2 Turns(QC): 4 Walk 150 ft (QC): 4 Gait Assistive Device: FWW Comments/Gait Description steady gait sequence with FWW Balance Sitting Static: Normal Sitting Dynamic: Normal Standing Static: Normal Standing Dynamic: Normal Assessment/Needs 78 y.o. male, will benefit from skilled PT to address functional mobility to improve current LOF to safely return to home at maximum LOF. Rehab Potential: Fair PT [facility] Goals Chief Mechanical Officer Goals PT Chief Mechanical Officer Goals Time Frame: Mar 08, 2019 Roll Left & Right (QC): 6 Sit to Lying (QC): 6 Lying-Sitting on Side/Bed(QC): 6 Sit to Stand (QC): 6 Chair/Pte-ms-Jlvop Xfer(QC): 6 Toilet Transfer (QC): 6 Car Transfer (QC): 6 Does the Patient Walk: Yes Walk 10 feet (QC): 6 Walk 50ft with 2 Turns (QC): 6 Walk 150 ft (QC): 6 1 Step (curb) (QC): 6 4 Steps (QC): 6 PT Plan Problem List Problem List: Activity Tolerance, Safety, Gait, Bed Mobility Treatment/Plan Treatment Plan: Continue Plan of Care Treatment Plan: Bed Mobility, Education, Functional Activity Rosa, Functional Strength, Gait, Safety, Therapeutic Exercise, Transfers Treatment Duration: Mar 08, 2019 Frequency: 6 times per week Estimated Hrs Per Day: .25 hour per day Patient and/or Family Agrees t: Yes Time/GCodes Time In: 1110 Time Out: 1126 Total Billed Treatment Time: 16 Total Billed Treatment 1 visit EVModC 16 min JULIETA TOLBERT PT Feb 21, 2019 11:42
--- NOTE | 2019-02-21 13:49 | NUR ---
The pt's daughter, son in law, niece and brother visited outside the pt's room. They shared feeling comforted that the pt received confession and sacrament of the sick. They express love for the pt and state he has received excellent care during his hospital stay.
--- NOTE | 2019-02-21 16:03 | NUR ---
CM/SS: Visited with pt as to plan for discharge Plan: Pt was just moved to 4th floor. Unknown date of discharge. Summary: Pt was moved to 4th floor. He reports feeling good and that he is unsure when he will leave. Plan is for him to still go with daughter for two weeks and return to his home when feeling better. This worker will follow up.
--- NOTE | 2019-02-21 19:54 | Progress Note - Surgery ---
Subjective Date Seen by a Provider: Feb 21, 2019 Time Seen by a Provider: 08:44 Subjective/Events-last exam Patient doing okay. Hgb stable. Not having any more blood per rectum at this time. Pain controlled. Denies any n/v fever sweats chills shortness of breath or chest pain. Urine clear yellow. No flatus or bm Objective Exam Vital Signs Date Time Temp Pulse Resp B/P (MAP) Pulse Ox O2 Delivery O2 Flow Rate FiO2 02/21/19 16:12 38.2 93 18 158/90 (112) 93 Room Air 02/21/19 12:18 36.6 80 18 142/71 (94) 97 Room Air 02/21/19 09:30 95 Room Air 02/21/19 09:26 37.4 85 20 158/76 (103) 95 Room Air 02/21/19 09:00 77 19 144/82 (102) 100 OxyMask 3.00 02/21/19 08:00 70 13 136/71 (92) 100 OxyMask 3.00 02/21/19 08:00 OxyMask 3.00 02/21/19 07:00 69 14 135/68 (90) 100 OxyMask 3.00 02/21/19 07:00 77 02/21/19 06:52 37.1 02/21/19 06:00 75 13 132/71 (91) 100 OxyMask 3.00 02/21/19 05:00 77 15 131/68 (89) 100 OxyMask 3.00 02/21/19 04:00 86 19 99 OxyMask 3.00 02/21/19 04:00 OxyMask 3.00 02/21/19 04:00 37.6 02/21/19 03:00 85 18 99 OxyMask 3.00 02/21/19 02:00 78 18 139/73 (95) 98 OxyMask 3.00 02/21/19 01:00 82 14 134/72 (92) 97 OxyMask 3.00 02/21/19 01:00 84 02/21/19 00:04 37.0 02/21/19 00:03 37.0 02/21/19 00:00 81 14 132/72 (92) 97 OxyMask 3.00 02/21/19 00:00 OxyMask 3.00 02/20/19 23:00 84 14 142/68 (92) 96 OxyMask 3.00 02/20/19 22:00 82 14 136/66 (89) 95 OxyMask 3.00 02/20/19 21:00 92 15 159/91 (113) 100 OxyMask 3.00 02/20/19 20:00 79 13 141/64 (89) 98 OxyMask 3.00 02/20/19 20:00 36.7 02/20/19 20:00 36.7 02/20/19 20:00 OxyMask 3.00 I & O 02/21/19 07:00 Intake Total 2620 ml Output Total 845 ml Balance 1775 ml Capillary Refill : Less Than 3 SecondsLess Than 3 Seconds General Appearance: No Apparent Distress, WD/WN HEENT: PERRL/EOMI, Normal ENT Inspection Neck: Supple Respiratory: Chest Non Tender, No Accessory Muscle Use, No Respiratory Distress Cardiovascular: Regular Rate, Rhythm, Normal Peripheral Pulses Gastrointestinal: non tender, soft, no organomegaly, other (incisions c/d/i) Neurologic/Psychiatric: Alert, Oriented x3, No Motor/Sensory Deficits, Normal Mood/Affect, chainer II-XII Norm as Tested Skin: Warm/Dry, Pallor Lymphatic: No Adenopathy Results Lab Laboratory Tests 02/21/19 00:02: Glucometer 157H 02/21/19 03:04: White Blood Count 11.6H, Red Blood Count 3.05L, Hemoglobin 9.0L, Hematocrit 27L, Mean Corpuscular Volume 89, Mean Corpuscular Hemoglobin 30, Mean Corpuscular Hemoglobin Concent 33, Red Cell Distribution Width 13.8, Platelet Count 163, Mean Platelet Volume 10.2, Neutrophils (%) (Auto) 87H, Lymphocytes (%) (Auto) 7L , Monocytes (%) (Auto) 6, Eosinophils (%) (Auto) 0, Basophils (%) (Auto) 0, Neutrophils # (Auto) 10.0H, Lymphocytes # (Auto) 0.8L, Monocytes # (Auto) 0.7, Eosinophils # (Auto) 0.0, Basophils # (Auto) 0.0, Sodium Level 140, Potassium Level 4.3, Chloride Level 109H, Carbon Dioxide Level 21, Anion Gap 10, Blood Urea Nitrogen 9, Creatinine 1.24, Estimat Glomerular Filtration Rate 56, BUN/Creatinine Ratio 7, Glucose Level 150H, Calcium Level 7.5L, Phosphorus Level 3.9, Magnesium Level 1.4L 02/21/19 03:57: Blood Gas Puncture Site RIGHT RADIAL, Blood Gas Patient Temperature 37.1, Arterial Blood pH 7.43, Arterial Blood Partial Pressure CO2 36, Arterial Blood Partial Pressure O2 91, Arterial Blood HCO3 23, Arterial Blood Total CO2 24.3, Arterial Blood Oxygen Saturation 98, Arterial Blood Base Excess -0.6, Bean Test POSITIVE, Blood Gas Ventilator Setting NO, Blood Gas Inspired Oxygen 7L 02/21/19 12:21: Glucometer 142H 02/21/19 18:20: Glucometer 128H Microbiology 02/18/19 MRSA Screen - Final, Complete MRSA not isolated Assessment/Plan Assessment/Plan Assessment/Plan Large Colon Polyp s/p lap hand assisted LAR Rectal Bleed and Anemia (secondary to above) huerta for accurate i/o scd's for dvt prophylaxis PT clear liquids incentive spirometry follow labs Clinical Quality Measures DVT/VTE Risk/Contraindication: Risk Factor Score Per Nursin RFS Level Per Nursing on Admit: 2=Moderate NALINI LAND DO Feb 21, 2019 19:53
[2019-02-22] VITALS: BP 150/76
[2019-02-22] MEDS: inSUlin ASPART (NovoLOG) 1 UNIT/0.01 ML (CHARGE PER UNIT) SQ SCH ×4 (00:03→18:49)
[2019-02-22 04:10] VITALS: BP 146/77
[2019-02-22] MEDS: LACTATED RINGERS 1,000 ML IV SCH ×3 (04:17→22:55)
[2019-02-22 06:13] LABS: BASOPHILS % (AUTO) 0 % (0-10); EOSINOPHILS # (AUTO) 0.2 10^3/uL (0.0-0.3); EOSINOPHILS % (AUTO) 2 % (0-10); HEMATOCRIT 23 % (40-54); HEMOGLOBIN 7.5 G/DL (13.3-17.7); LYMPHOCYTES # (AUTO) 0.9 X 10^3 (1.0-4.0); LYMPHOCYTES % (AUTO) 12 % (12-44); MEAN CORPUSCULAR HEMOGLOBIN 29 PG (25-34); MEAN CORPUSCULAR HGB CONC 33 G/DL (32-36); MEAN CORPUSCULAR VOLUME 89 FL (80-99); MEAN PLATELET VOLUME 9.7 FL (7.4-10.4); MONOCYTES # (AUTO) 0.7 X 10^3 (0.0-1.0); MONOCYTES % (AUTO) 9 % (0-12); NEUTROPHILS # (AUTO) 5.6 X 10^3 (1.8-7.8); NEUTROPHILS % (AUTO) 76 % (42-75); PLATELET COUNT 144 10^3/uL (130-400); RED CELL DISTRIBUTION WIDTH 14.1 % (10.0-14.5); WHITE BLOOD COUNT 7.4 10^3/uL (4.3-11.0)
[2019-02-22 06:32] LABS: ALANINE AMINOTRANSFERASE 7 U/L (0-55); ALBUMIN 2.7 GM/DL (3.2-4.5); ALKALINE PHOSPHATASE 39 U/L (40-136); BILIRUBIN,TOTAL 0.6 MG/DL (0.1-1.0); BUN/CREATININE RATIO 9; CALCIUM 7.4 MG/DL (8.5-10.1); CARBON DIOXIDE 20 MMOL/L (21-32); CHLORIDE 110 MMOL/L (98-107); CREATININE SERUM 1.12 MG/DL (0.60-1.30); GFR ESTIMATED > 60; GLUCOSE 114 MG/DL (70-105); MAGNESIUM 1.7 MG/DL (1.6-2.4); PHOSPHORUS 2.3 MG/DL (2.3-4.7); POTASSIUM 3.7 MMOL/L (3.6-5.0); SODIUM 141 MMOL/L (135-145); TOTAL PROTEIN 4.5 GM/DL (6.4-8.2)
[2019-02-22] MEDS: KCL 20 MEQ TAB (K-DUR) PO SCH (06:35)
[2019-02-22] MEDS: MAGNESIUM 1 GM/100 ML IVPB 100 ML IV SCH ×3 (06:36→08:25)
[2019-02-22] MEDS: POTASSIUM CL 10MEQ/50ML IVPB 50 ML IV SCH (06:36)
[2019-02-22 08:00] VITALS: BP 141/67
[2019-02-22] MEDS: GABAPENTIN 300 MG (NEURONTIN) CAP PO SCH ×3 (08:24→21:16)
[2019-02-22] MEDS: FAMOTIDINE 20MG/2ML IV (PEPCID) IVP SCH ×2 (08:25→21:16)
--- NOTE | 2019-02-22 08:35 | Pulmonary Progress Note ---
Subjective Time Seen by a Provider: 08:33 Subjective/Events-last exam No complications noted. Sepsis Event Evaluation Height, Weight, BMI Height: 5'7.00" Weight: 216lbs. oz. 97.769445sz; 35.62 BMI Method:Stated Exam Exam Vital Signs Date Time Temp Pulse Resp B/P (MAP) Pulse Ox O2 Delivery O2 Flow Rate FiO2 02/22/19 04:10 37.4 78 14 146/77 (100) 93 Room Air 02/22/19 00:00 37.4 77 18 150/76 (100) 94 Room Air 02/21/19 21:00 Room Air 02/21/19 20:00 37.8 90 20 161/80 (107) 94 Room Air 02/21/19 16:12 38.2 93 18 158/90 (112) 93 Room Air 02/21/19 12:18 36.6 80 18 142/71 (94) 97 Room Air 02/21/19 09:30 95 Room Air 02/21/19 09:26 37.4 85 20 158/76 (103) 95 Room Air 02/21/19 09:00 77 19 144/82 (102) 100 OxyMask 3.00 I & O 02/22/19 07:00 Intake Total 2000 ml Output Total 925 ml Balance 1075 ml Height & Weight Height: 5'7.00" Weight: 216lbs. oz. 97.282296fm; 35.62 BMI Method:Stated General Appearance: No Apparent Distress, WD/WN HEENT: PERRL/EOMI, Normal ENT Inspection Neck: Supple Respiratory: Chest Non Tender, Lungs Clear, Normal Breath Sounds, No Accessory Muscle Use, No Respiratory Distress Cardiovascular: Regular Rate, Rhythm, No Edema, No Gallop, No JVD, No Murmur, Normal Peripheral Pulses Capillary Refill: Less Than 3 Seconds Gastrointestinal: non tender, soft, no organomegaly, other (incisions c/d/i) Neurologic/Psychiatric: Alert, Oriented x3, No Motor/Sensory Deficits, Normal Mood/Affect Skin: Warm/Dry, Pallor Lymphatic: No Adenopathy Results Lab Laboratory Tests 02/21/19 03:04 02/22/19 05:46 Assessment/Plan Assessment/Plan Rectal mass s/p resection -Surgery following s/p rectal bleeding Anemia -Monitor I am going to sign off please call with any questions or concerns. TOMMIE BUITRAGO DO Feb 22, 2019 08:35
[2019-02-22 12:00] VITALS: BP 149/74
[2019-02-22] MEDS ORDERED: IRON SUCROSE 200 MG/10 ML (VENOFER) VIAL IV NR (12:30)
--- NOTE | 2019-02-22 12:30 | Progress Note - Hospitalist ---
Subjective HPI/CC On Admission Date Seen by Provider: Feb 22, 2019 Time Seen by Provider: 11:00 this is an 78-year-old white male who had had a colonoscopy approximately 3 weeks prior to this presentation. Dr. Cardoza had done this procedure. 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 The patient had been doing well without problems until yesterday when he noticed that he had an urgency to defecate and found that he had a great deal of rectal bleeding. He became dizzy and diaphoretic and almost passed out several times as the patient continued. He presented to the [facility] room with similar complaints with an elevated white count of 17,000 and hemoglobin of 12. Overnight even though the bleeding has slowed down the hemoglobin has dropped to 9.8. He has no complaints of abdominal pain or issues related to that other than the near syncopal episodes associated with the bleeding. Subjective/Events-last exam Several family members in the room contributing the conversation at the same time difficult to manage Patient feels good Tolerating ice chips No BM or flatus yet Hgb 7.5 no indication for transfusion at this time but will check iron level and given iron infusions now Left hand swelling from IV placement will manage that conservatively Catheter will be DC today Review of Systems General: Fatigue Gastrointestinal: Abdominal Pain Objective Exam Vital Signs Vital Signs Date Time Temp Pulse Resp B/P (MAP) Pulse Ox O2 Delivery O2 Flow Rate FiO2 02/22/19 12:00 37.8 70 20 149/74 (99) 93 Room Air 02/21/19 09:00 3.00 02/20/19 18:57 100 Capillary Refill : Less Than 3 SecondsLess Than 3 Seconds General Appearance: No Apparent Distress, WD/WN, Chronically ill Respiratory: Chest Non Tender, Lungs Clear, Normal Breath Sounds, No Accessory Muscle Use, No Respiratory Distress Cardiovascular: Regular Rate, Rhythm, No Edema, No Gallop, No JVD, No Murmur, Normal Peripheral Pulses Neurologic/Psychiatric: Alert, Oriented x3, No Motor/Sensory Deficits, Normal Mood/Affect Results/Procedures Lab Laboratory Tests 02/22/19 05:46 Patient resulted labs reviewed. Imaging: Reviewed Imaging Report Assessment/Plan Assessment and Plan Assess & Plan/Chief Complaint Assessment: Melena Colon mass s/p resection POD # 2 Anemia due to acute blood loss Alcohol use Presumed iron def started iron infusion and checking level before treatment Plan: Recovery IV iron DC catheter IS Diagnosis/Problems Diagnosis/Problems (1) GI (gastrointestinal bleed) (2) Bleeding per rectum (3) Acute blood loss anemia Status: Acute (4) Hypotension Status: Acute Qualifiers: Hypotension type: hypotension due to hypovolemia Qualified Codes: I95.89 - Other hypotension; E86.1 - Hypovolemia (5) Rectal polyp Status: Acute Clinical Quality Measures DVT/VTE Risk/Contraindication: Risk Factor Score Per Nursin RFS Level Per Nursing on Admit: 2=Moderate MAGNUS MERLOS DO Feb 22, 2019 12:30
--- NOTE | 2019-02-22 12:34 | Progress Note ---
Subjective Date Seen by a Provider: Feb 22, 2019 Time Seen by a Provider: 11:20 Subjective/Events-last exam Patient seen with Dr. Montenegro. Patient reports doing well. Minimal abdominal discomfort. No N/V. No Fever/chills. Ambulating well. Huerta in place. Tolerating ice chips. No bowel function yet. Objective Exam Vital Signs Date Time Temp Pulse Resp B/P (MAP) Pulse Ox O2 Delivery O2 Flow Rate FiO2 02/22/19 12:00 37.8 70 20 149/74 (99) 93 Room Air 02/22/19 09:00 92 Room Air 02/22/19 08:00 37.0 72 18 141/67 (91) 92 Room Air 02/22/19 04:10 37.4 78 14 146/77 (100) 93 Room Air 02/22/19 00:00 37.4 77 18 150/76 (100) 94 Room Air 02/21/19 21:00 Room Air 02/21/19 20:00 37.8 90 20 161/80 (107) 94 Room Air 02/21/19 16:12 38.2 93 18 158/90 (112) 93 Room Air I & O 02/22/19 07:00 Intake Total 2000 ml Output Total 925 ml Balance 1075 ml Capillary Refill : Less Than 3 SecondsLess Than 3 Seconds General Appearance: No Apparent Distress, WD/WN Neck: Full Range of Motion, Normal Inspection, Supple Respiratory: Normal Breath Sounds, No Accessory Muscle Use, No Respiratory Distress Cardiovascular: Regular Rate, Rhythm, No Murmur Gastrointestinal: soft, tenderness Extremity: Normal Capillary Refill, Normal Inspection, Normal Range of Motion, Swelling (left upper extremity approx 2-3+) Neurologic/Psychiatric: Alert, Oriented x3 Skin: Normal Color, Warm/Dry, Other (Abdominal incisions C/D/I) Results Lab Laboratory Tests 02/21/19 18:20: Glucometer 128H 02/21/19 23:59: Glucometer 120H 02/22/19 05:33: Glucometer 99 02/22/19 05:46: White Blood Count 7.4, Red Blood Count 2.59L, Hemoglobin 7.5L, Hematocrit 23L, Mean Corpuscular Volume 89, Mean Corpuscular Hemoglobin 29, Mean Corpuscular Hemoglobin Concent 33, Red Cell Distribution Width 14.1, Platelet Count 144, Mean Platelet Volume 9.7, Neutrophils (%) (Auto) 76H, Lymphocytes (%) (Auto) 12, Monocytes (%) (Auto) 9, Eosinophils (%) (Auto) 2, Basophils (%) (Auto) 0, Neutrophils # (Auto) 5.6, Lymphocytes # (Auto) 0.9L, Monocytes # (Auto) 0.7, Eosinophils # (Auto) 0.2, Basophils # (Auto) 0.0, Sodium Level 141, Potassium Level 3.7, Chloride Level 110H, Carbon Dioxide Level 20L, Anion Gap 11, Blood Urea Nitrogen 10, Creatinine 1.12, Estimat Glomerular Filtration Rate > 60, BUN/Creatinine Ratio 9, Glucose Level 114H, Calcium Level 7.4L, Corrected Calcium 8.4L, Phosphorus Level 2.3, Magnesium Level 1.7, Total Bilirubin 0.6, Aspartate Amino Transf (AST/SGOT) 12, Alanine Aminotransferase (ALT/SGPT) 7, Alkaline Phosphatase 39L, Total Protein 4.5L, Albumin 2.7L Microbiology 02/18/19 MRSA Screen - Final, Complete MRSA not isolated Assessment/Plan Assessment/Plan Assess & Plan/Chief Complaint An 78 year old male with a Large Colon Polyp s/p lap hand assisted LAR Rectal Bleed and Anemia (secondary to above) VSS Hgb 7.5 and will continue to monitor labs DC huerta scd's for dvt prophylaxis PT clear liquids incentive spirometry encourage ambulation Clinical Quality Measures DVT/VTE Risk/Contraindication: Risk Factor Score Per Nursin RFS Level Per Nursing on Admit: 2=Moderate PATRICA LEDESMA EARLY CHILDHOOD ASSOCIATE TEACHER Feb 22, 2019 12:34
[2019-02-22] MEDS: morphine INJ 4 MG/ML 1 ML (VIAL/SYRINGE) IVP PRN (14:12)
[2019-02-22 15:30] VITALS: BP 162/100
[2019-02-22] MEDS ORDERED: ACETAMINOPHEN 500 MG TAB (TYLENOL) ONE (15:33)
--- NOTE | 2019-02-22 15:50 | NUR ---
Report received from Rimma VELEZ, will assume care of patient at this time.
[2019-02-22 20:00] VITALS: BP 119/68
--- NOTE | 2019-02-22 22:26 | NUR ---
PT HAS NOT VOID SINCE JERAMY CEBALLOS DC AT 1500. TOOK PT TO BATHROOM AND UNABLE TO URINATED. BLADDER SCAN PT AND 275CC IN BLADDER. SOME SWOLLEN NOTICED IN TESTICLE AND LEFT HAND. DR MERLOS NOTIFIED AND NEW ORDERS RECEIVED SEE ORDER HX.
[2019-02-22] MEDS ORDERED: FUROSEMIDE 40 MG/4 ML INJ (LASIX) IVP ONE (22:30)
[2019-02-22] MEDS ORDERED: FUROSEMIDE 40 MG/4 ML INJ (LASIX) ONE (22:32)
[2019-02-23] VITALS: BP 121/69
[2019-02-23] MEDS: inSUlin ASPART (NovoLOG) 1 UNIT/0.01 ML (CHARGE PER UNIT) SQ SCH ×4 (00:40→18:05)
[2019-02-23 04:00] VITALS: BP 120/73
[2019-02-23 06:28] LABS: BASOPHILS % (AUTO) 0 % (0-10); EOSINOPHILS # (AUTO) 0.3 10^3/uL (0.0-0.3); EOSINOPHILS % (AUTO) 4 % (0-10); HEMATOCRIT 24 % (40-54); HEMOGLOBIN 7.9 G/DL (13.3-17.7); LYMPHOCYTES % (AUTO) 15 % (12-44); MEAN CORPUSCULAR HEMOGLOBIN 29 PG (25-34); MEAN CORPUSCULAR HGB CONC 33 G/DL (32-36); MEAN CORPUSCULAR VOLUME 89 FL (80-99); MEAN PLATELET VOLUME 9.6 FL (7.4-10.4); MONOCYTES # (AUTO) 0.6 X 10^3 (0.0-1.0); MONOCYTES % (AUTO) 8 % (0-12); NEUTROPHILS % (AUTO) 73 % (42-75); PLATELET COUNT 171 10^3/uL (130-400); WHITE BLOOD COUNT 6.9 10^3/uL (4.3-11.0)
[2019-02-23 06:49] LABS: BUN/CREATININE RATIO 9; CALCIUM 7.7 MG/DL (8.5-10.1); CARBON DIOXIDE 22 MMOL/L (21-32); CHLORIDE 108 MMOL/L (98-107); CREATININE SERUM 1.09 MG/DL (0.60-1.30); GFR ESTIMATED > 60; GLUCOSE 100 MG/DL (70-105); MAGNESIUM 1.8 MG/DL (1.6-2.4); PHOSPHORUS 2.2 MG/DL (2.3-4.7); POTASSIUM 3.4 MMOL/L (3.6-5.0); SODIUM 141 MMOL/L (135-145)
[2019-02-23] MEDS: MAGNESIUM 1 GM/100 ML IVPB 100 ML IV SCH (07:03)
[2019-02-23] MEDS: KCL 20 MEQ TAB (K-DUR) PO SCH (07:04)
[2019-02-23] MEDS: POTASSIUM CL 10MEQ/50ML IVPB 50 ML IV SCH (07:04)
[2019-02-23 07:26] VITALS: BP 129/70
[2019-02-23] MEDS: LACTATED RINGERS 1,000 ML IV SCH (08:56)
[2019-02-23] MEDS: GABAPENTIN 300 MG (NEURONTIN) CAP PO SCH ×3 (08:57→21:05)
[2019-02-23] MEDS ORDERED: KCL 20 MEQ TAB (K-DUR) PO ONE (09:00)
[2019-02-23] MEDS: FAMOTIDINE 20MG/2ML IV (PEPCID) IVP SCH ×2 (09:07→21:04)
--- NOTE | 2019-02-23 10:34 | Progress Note ---
Subjective Date Seen by a Provider: Feb 23, 2019 Time Seen by a Provider: 09:25 Subjective/Events-last exam Patient seen with Dr. Montenegro. Patient reports doing well. Reports some mild abdominal discomfort but no significant pain. Reports passing flatus. Ambulating well. Had to replace huerta last night due to inability to urinate. Objective Exam Vital Signs Date Time Temp Pulse Resp B/P (MAP) Pulse Ox O2 Delivery O2 Flow Rate FiO2 02/23/19 09:00 Room Air 02/23/19 07:26 37.4 72 20 129/70 (89) 96 Room Air 02/23/19 04:00 37.5 69 18 120/73 (89) 94 Room Air 02/23/19 00:00 37.2 73 20 121/69 (86) 95 Room Air 02/22/19 21:00 Room Air 02/22/19 20:00 37.2 88 21 119/68 (85) 92 Nasal Cannula 2.00 02/22/19 16:00 37.7 02/22/19 15:30 37.5 138 21 162/100 (120) 93 Nasal Cannula 2.00 02/22/19 12:00 37.8 70 20 149/74 (99) 93 Room Air I & O 02/23/19 07:00 Intake Total 1000 ml Output Total 2200 ml Balance -1200 ml Capillary Refill : Less Than 3 SecondsLess Than 3 Seconds General Appearance: No Apparent Distress, WD/WN Neck: Full Range of Motion, Normal Inspection, Supple Respiratory: Normal Breath Sounds, No Accessory Muscle Use, No Respiratory Distress Cardiovascular: Regular Rate, Rhythm, No Murmur Gastrointestinal: normal bowel sounds, soft, tenderness Extremity: Normal Capillary Refill, Normal Inspection, Normal Range of Motion Neurologic/Psychiatric: Alert, Oriented x3 Skin: Normal Color, Warm/Dry, Other (Abdominal incisions C/D/I) Results Lab Laboratory Tests 02/22/19 12:34: Glucometer 111H 02/22/19 18:45: Glucometer 141H 02/23/19 00:59: Glucometer 118H 02/23/19 05:24: Glucometer 100 02/23/19 06:00: White Blood Count 6.9, Red Blood Count 2.70L, Hemoglobin 7.9L, Hematocrit 24L, Mean Corpuscular Volume 89, Mean Corpuscular Hemoglobin 29, Mean Corpuscular Hemoglobin Concent 33, Red Cell Distribution Width 14.0, Platelet Count 171, Mean Platelet Volume 9.6, Neutrophils (%) (Auto) 73, Lymphocytes (%) (Auto) 15, Monocytes (%) (Auto) 8, Eosinophils (%) (Auto) 4, Basophils (%) (Auto) 0, Neutrophils # (Auto) 5.0, Lymphocytes # (Auto) 1.0, Monocytes # (Auto) 0.6, Eosinophils # (Auto) 0.3, Basophils # (Auto) 0.0, Sodium Level 141, Potassium Level 3.4L, Chloride Level 108H, Carbon Dioxide Level 22, Anion Gap 11, Blood Urea Nitrogen 10, Creatinine 1.09, Estimat Glomerular Filtration Rate > 60, BUN/Creatinine Ratio 9, Glucose Level 100, Calcium Level 7.7L, Phosphorus Level 2.2L, Magnesium Level 1.8 Microbiology 02/18/19 MRSA Screen - Final, Complete MRSA not isolated Assessment/Plan Assessment/Plan Assess & Plan/Chief Complaint An 78 year old male with a Large Colon Polyp s/p lap hand assisted LAR Rectal Bleed and Anemia (secondary to above) VSS Hgb 7.9 today scd's for dvt prophylaxis PT Having flatus. continue clear liquids incentive spirometry encourage ambulation Clinical Quality Measures DVT/VTE Risk/Contraindication: Risk Factor Score Per Nursin RFS Level Per Nursing on Admit: 2=Moderate PATRICA LEDESMA COIN MACHINE SERVICER REPAIRER Feb 23, 2019 10:34
[2019-02-23 11:09] VITALS: BP 156/78
--- NOTE | 2019-02-23 13:02 | Progress Note - Hospitalist ---
Subjective HPI/CC On Admission Date Seen by Provider: Feb 23, 2019 Time Seen by Provider: 11:30 this is an 78-year-old white male who had had a colonoscopy approximately 3 weeks prior to this presentation. Dr. Cardoza had done this procedure. 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 The patient had been doing well without problems until yesterday when he noticed that he had an urgency to defecate and found that he had a great deal of rectal bleeding. He became dizzy and diaphoretic and almost passed out several times as the patient continued. He presented to the [facility] room with similar complaints with an elevated white count of 17,000 and hemoglobin of 12. Overnight even though the bleeding has slowed down the hemoglobin has dropped to 9.8. He has no complaints of abdominal pain or issues related to that other than the near syncopal episodes associated with the bleeding. Subjective/Events-last exam Patient required huerta catheter replacement last night IV Lasix given Hgb 7.9 Flatus noted Bladder meds started to help resolve the retention CLD has been ordered today by surgery IVF will be slowed to 50cc/hr Review of Systems Gastrointestinal: Abdominal Pain Objective Exam Vital Signs Vital Signs Date Time Temp Pulse Resp B/P (MAP) Pulse Ox O2 Delivery O2 Flow Rate FiO2 02/23/19 15:25 36.8 72 18 157/84 (108) 96 Room Air 02/22/19 20:00 2.00 02/20/19 18:57 100 Capillary Refill : Less Than 3 SecondsLess Than 3 Seconds General Appearance: No Apparent Distress, WD/WN Respiratory: Chest Non Tender, Lungs Clear, Normal Breath Sounds, No Accessory Muscle Use, No Respiratory Distress Cardiovascular: Regular Rate, Rhythm, No Edema, No Gallop, No JVD, No Murmur, Normal Peripheral Pulses Neurologic/Psychiatric: Alert, Oriented x3, No Motor/Sensory Deficits, Normal Mood/Affect Results/Procedures Lab Laboratory Tests 02/23/19 06:00 Patient resulted labs reviewed. Imaging: Reviewed Imaging Report Assessment/Plan Assessment and Plan Assess & Plan/Chief Complaint Assessment: Melena Colon mass s/p resection POD # 3 Anemia due to acute blood loss Alcohol use Severe iron deficiency unmeasurable level placed on IV iron empirically getting 2nd dose Sunday Urinary retention requiring huerta cath replacement last night started on bladder meds Plan: Recovery IV iron Huerta cath Bladder meds IS Diagnosis/Problems Diagnosis/Problems (1) GI (gastrointestinal bleed) (2) Bleeding per rectum (3) Acute blood loss anemia Status: Acute (4) Hypotension Status: Acute Qualifiers: Hypotension type: hypotension due to hypovolemia Qualified Codes: I95.89 - Other hypotension; E86.1 - Hypovolemia (5) Rectal polyp Status: Acute (6) Urinary retention (7) Huerta catheter in place Clinical Quality Measures DVT/VTE Risk/Contraindication: Risk Factor Score Per Nursin RFS Level Per Nursing on Admit: 2=Moderate MAGNUS MERLOS DO Feb 23, 2019 13:02
[2019-02-23] MEDS: BETHANECHOL 25 MG (URECHOLINE) TAB PO SCH ×2 (13:57→21:04)
[2019-02-23 15:25] VITALS: BP 157/84
[2019-02-23] MEDS ORDERED: TAMSULOSIN 0.4 MG (FLOMAX) CAP PO SCH (18:00)
[2019-02-23 19:28] VITALS: BP 121/60
[2019-02-24] VITALS: BP 120/60
[2019-02-24] MEDS: inSUlin ASPART (NovoLOG) 1 UNIT/0.01 ML (CHARGE PER UNIT) SQ SCH ×3 (00:05→12:55)
[2019-02-24] MEDS: LACTATED RINGERS 1,000 ML IV SCH (02:37)
[2019-02-24 03:30] VITALS: BP 131/69
[2019-02-24 04:50] LABS: BASOPHILS % (AUTO) 0 % (0-10); EOSINOPHILS # (AUTO) 0.3 10^3/uL (0.0-0.3); EOSINOPHILS % (AUTO) 5 % (0-10); HEMATOCRIT 22 % (40-54); LYMPHOCYTES # (AUTO) 0.9 X 10^3 (1.0-4.0); LYMPHOCYTES % (AUTO) 18 % (12-44); MEAN CORPUSCULAR HEMOGLOBIN 29 PG (25-34); MEAN CORPUSCULAR HGB CONC 32 G/DL (32-36); MEAN CORPUSCULAR VOLUME 88 FL (80-99); MEAN PLATELET VOLUME 9.6 FL (7.4-10.4); MONOCYTES # (AUTO) 0.6 X 10^3 (0.0-1.0); MONOCYTES % (AUTO) 13 % (0-12); NEUTROPHILS # (AUTO) 3.1 X 10^3 (1.8-7.8); NEUTROPHILS % (AUTO) 64 % (42-75); PLATELET COUNT 175 10^3/uL (130-400); WHITE BLOOD COUNT 4.8 10^3/uL (4.3-11.0)
[2019-02-24 05:17] LABS: BUN/CREATININE RATIO 10; CALCIUM 7.4 MG/DL (8.5-10.1); CARBON DIOXIDE 21 MMOL/L (21-32); CHLORIDE 109 MMOL/L (98-107); CREATININE SERUM 0.92 MG/DL (0.60-1.30); GFR ESTIMATED > 60; GLUCOSE 114 MG/DL (70-105); MAGNESIUM 1.6 MG/DL (1.6-2.4); POTASSIUM 3.4 MMOL/L (3.6-5.0); SODIUM 140 MMOL/L (135-145)
[2019-02-24] MEDS: KCL 20 MEQ TAB (K-DUR) PO SCH (05:49)
[2019-02-24] MEDS: POTASSIUM CL 10MEQ/50ML IVPB 50 ML IV SCH (05:49)
[2019-02-24] MEDS: MAGNESIUM 1 GM/100 ML IVPB 100 ML IV SCH ×3 (05:49→08:10)
[2019-02-24] MEDS ORDERED: KCL 20 MEQ TAB (K-DUR) PO ONE ×2 (06:00→06:45)
--- NOTE | 2019-02-24 07:20 | Progress Note - Surgery ---
[facility] 02/24/19 0720: Subjective Date Seen by a Provider: Feb 24, 2019 Time Seen by a Provider: 06:44 Subjective/Events-last exam Pt reports some minor pain at incision site when getting up to stand. He denies any abdominal pain when eating or drinking. He has had some flatus and reports a small BM the day before yesterday. He had trouble with urination and has a Huerta catheter in place currently, and he hopes to have it out today. Review of Systems General: No Chills, No Malaise HEENT: No Head Aches, No Dysphasia Pulmonary: No Dyspnea, No Cough Cardiovascular: No: Chest Pain, Palpitations Gastrointestinal: No: Nausea, Vomiting, Abdominal Pain, Diarrhea Musculoskeletal: other (Abdominal incision pain with movement); No: leg pain Neurological: No: Weakness, Numbness Objective Exam Vital Signs Date Time Temp Pulse Resp B/P (MAP) Pulse Ox O2 Delivery O2 Flow Rate FiO2 02/24/19 03:30 37.0 77 20 131/69 (89) 93 Room Air 02/24/19 00:00 37.2 85 22 120/60 (80) 93 Room Air 02/23/19 20:00 Room Air 02/23/19 19:28 37.8 74 20 121/60 (80) 96 Room Air 02/23/19 15:25 36.8 72 18 157/84 (108) 96 Room Air 02/23/19 11:09 37.5 69 20 156/78 (104) 99 Room Air 02/23/19 09:00 Room Air 02/23/19 07:26 37.4 72 20 129/70 (89) 96 Room Air I & O 02/24/19 07:00 Intake Total 3220 ml Output Total 1000 ml Balance 2220 ml Capillary Refill : Less Than 3 SecondsLess Than 3 Seconds General Appearance: No Apparent Distress, WD/WN HEENT: PERRL/EOMI, Normal ENT Inspection, Other (edentulous) Neck: Full Range of Motion, Normal Inspection, Supple Respiratory: Chest Non Tender, Lungs Clear, Normal Breath Sounds, No Accessory Muscle Use, No Respiratory Distress Cardiovascular: Regular Rate, Rhythm, No Edema, No Gallop, No JVD, No Murmur, Normal Peripheral Pulses Gastrointestinal: normal bowel sounds, soft, tenderness Extremity: Normal Capillary Refill, Normal Inspection, Normal Range of Motion Neurologic/Psychiatric: Alert, Oriented x3, No Motor/Sensory Deficits, Normal Mood/Affect Skin: Normal Color, Warm/Dry, Other (Abdominal incisions C/D/I) Lymphatic: No Adenopathy Results Lab Laboratory Tests 02/23/19 11:09: Glucometer 99 02/23/19 15:42: Glucometer 149H 02/24/19 00:03: Glucometer 133H 02/24/19 04:11: White Blood Count 4.8, Red Blood Count 2.45L, Hemoglobin 7.0L, Hematocrit 22L, Mean Corpuscular Volume 88, Mean Corpuscular Hemoglobin 29, Mean Corpuscular Hemoglobin Concent 32, Red Cell Distribution Width 14.0, Platelet Count 175, Mean Platelet Volume 9.6, Neutrophils (%) (Auto) 64, Lymphocytes (%) (Auto) 18, Monocytes (%) (Auto) 13H, Eosinophils (%) (Auto) 5, Basophils (%) (Auto) 0, Neutrophils # (Auto) 3.1, Lymphocytes # (Auto) 0.9L, Monocytes # (Auto) 0.6, Eosinophils # (Auto) 0.3, Basophils # (Auto) 0.0, Sodium Level 140, Potassium Level 3.4L, Chloride Level 109H, Carbon Dioxide Level 21, Anion Gap 10, Blood Urea Nitrogen 9, Creatinine 0.92, Estimat Glomerular Filtration Rate > 60, BUN/Creatinine Ratio 10, Glucose Level 114H, Calcium Level 7.4L, Phosphorus Level 2.0L, Magnesium Level 1.6 Microbiology 02/18/19 MRSA Screen - Final, Complete MRSA not isolated Assessment/Plan Assessment/Plan Assessment/Plan An 78 year old male with a Large Colon Polyp s/p lap hand assisted LAR Rectal Bleed and Anemia (secondary to above) VSS Hgb 7.9 today scd's for dvt prophylaxis PT Having flatus. Progress diet slowly to soft food incentive spirometry encourage ambulation Clinical Quality Measures DVT/VTE Risk/Contraindication: Risk Factor Score Per Nursin RFS Level Per Nursing on Admit: 2=Moderate NALINI LAND DO 02/24/191907: Subjective Subjective/Events-last exam Pain controlled. Having bowel function. Huerta due to retention. Not having a ny blood per rectum. wanting to go home. denies n/v fever sweats chills shortness of breath or chest pain. Objective Exam General Appearance: No Apparent Distress HEENT: PERRL/EOMI Neck: Normal Inspection Respiratory: Chest Non Tender, No Accessory Muscle Use, No Respiratory Distress Cardiovascular: Regular Rate, Rhythm Gastrointestinal: non tender, soft Neurologic/Psychiatric: Alert, Oriented x3 Skin: Normal Color, Warm/Dry Lymphatic: No Adenopathy Assessment/Plan Assessment/Plan Assessment/Plan s/p lar urinary retention doing well dc huerta and monitor if urinates or needs huerta okay to dc home Supervisory-Addendum Brief Verification & Attestation Participated in pt care: history, MDM, physical Personally performed: exam, history, MDM, supervision of care Care discussed with: Medical Student Procedures: n/a Results interpretation: Verified all documentation Verification and Attestation of Medical Student E/M Service A medical student performed and documented this service in my presence. I reviewed and verified all information documented by the medical student and made modifications to such information, when appropriate. I personally performed the physical exam and medical decision making. Nalini Land, Feb 24, 2019,19:08 [facility] Feb 24, 2019 07:20 NALINI LAND DO Feb 24, 2019 19:08
[2019-02-24] MEDS ORDERED: KCL 20 MEQ TAB (K-DUR) PO NR (07:45)
[2019-02-24] MEDS ORDERED: POT PHOS/NA PHOS (K-PHOS NEUTRAL) PO NR (07:45)
[2019-02-24 08:00] VITALS: BP 164/83
[2019-02-24] MEDS: FAMOTIDINE 20MG/2ML IV (PEPCID) IVP SCH (08:08)
[2019-02-24] MEDS: GABAPENTIN 300 MG (NEURONTIN) CAP PO SCH ×2 (08:09→13:29)
[2019-02-24] MEDS ORDERED: IRON SUCROSE 200 MG/10 ML (VENOFER) VIAL IV SCH (09:00)
[2019-02-24] MEDS: BETHANECHOL 25 MG (URECHOLINE) TAB PO SCH ×2 (10:00→13:29)
[2019-02-24 12:00] VITALS: BP 182/84
--- NOTE | 2019-02-24 12:08 | Progress Note - Hospitalist ---
Subjective HPI/CC On Admission Date Seen by Provider: Feb 24, 2019 Time Seen by Provider: 08:20 this is an 78-year-old white male who had had a colonoscopy approximately 3 weeks prior to this presentation. Dr. Cardoza had done this procedure. 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 The patient had been doing well without problems until yesterday when he noticed that he had an urgency to defecate and found that he had a great deal of rectal bleeding. He became dizzy and diaphoretic and almost passed out several times as the patient continued. He presented to the [facility] room with similar complaints with an elevated white count of 17,000 and hemoglobin of 12. Overnight even though the bleeding has slowed down the hemoglobin has dropped to 9.8. He has no complaints of abdominal pain or issues related to that other than the near syncopal episodes associated with the bleeding. Subjective/Events-last exam He has no complaints or concerns at this time. He denies any fevers or chills. He denies any chest pain or shortness of breath. He had a bowel movement yesterday which was normal. Objective Exam Vital Signs Vital Signs Date Time Temp Pulse Resp B/P (MAP) Pulse Ox O2 Delivery O2 Flow Rate FiO2 02/24/19 08:00 37.1 81 18 164/83 (110) 94 Room Air 02/22/19 20:00 2.00 02/20/19 18:57 100 Capillary Refill : Less Than 3 SecondsLess Than 3 Seconds General Appearance: No Apparent Distress, WD/WN HEENT: PERRL/EOMI, Pharynx Normal Neck: Normal Inspection, Supple Respiratory: Lungs Clear, Normal Breath Sounds, No Respiratory Distress Cardiovascular: Regular Rate, Rhythm, No Edema, No Murmur Gastrointestinal: Normal Bowel Sounds, Non Tender, Soft Extremity: Normal Inspection, Non Tender, No Pedal Edema Neurologic/Psychiatric: Alert, Oriented x3, No Motor/Sensory Deficits, Normal Mood/Affect Skin: Normal Color, Warm/Dry Results/Procedures Lab Laboratory Tests 02/24/19 04:11 Patient resulted labs reviewed. Imaging: Reviewed Imaging Report Assessment/Plan Assessment and Plan Assess & Plan/Chief Complaint Colon mass s/p resection Iron deficiency anemia Hemoglobin 7 this morning Surgery following Continue iron infusions Urinary retention Chopra in place Remove Chopra and attempt voiding trial today Hypokalemia Hypophosphatemia Continue to monitor and replace as needed DVT prophylaxis: SCDs Diagnosis/Problems Diagnosis/Problems (1) Rectal polyp Status: Acute (2) Rectal bleeding Status: Acute (3) Acute blood loss anemia Status: Acute (4) Urinary retention Status: Acute (5) Chopra catheter in place Status: Acute Clinical Quality Measures DVT/VTE Risk/Contraindication: Risk Factor Score Per Nursin RFS Level Per Nursing on Admit: 2=Moderate EMIL KRUEGER MD Feb 24, 2019 12:08
--- NOTE | 2019-02-24 12:12 | Physical Therapy Daily Note ---
PT Daily Note-Current Subjective Patient agrees to PT. Mental Status Patient Orientation: Normal For Age Attachments: IV Transfers SCALE: Activities may be completed with or without assistive devices. 0-Xxazqyivmv-uhhqdku completes the activity by him/herself with no assistance from a helper. 5-Set-up or Clean-up Assistance-helper sets up or cleans up; patient completes activity. [place] assists only prior to or following the activity. 4-Supervision or Touching Assistance-helper provides verbal cues and/or touching/steadying and/or contact guard assistance as patient completes activity. Assistance may be provided throughout the activity or intermittently. 3-Partial/Moderate Assistance-helper does LESS THAN HALF the effort. [place] lifts, holds or supports trunk or limbs, but provides less than half the effort. 2-Substantial/Maximal Assistance-helper does MORE THAN HALF the effort. [place] lifts or holds trunk or limbs and provides more than half the effort. 0-Tgbsokixa-eajmva does ALL the effort. Patient does none of the effort to complete the activity. Or, the assistance of 2 or more helpers is required for the patient to complete the activity. If activity was not attempted, code reason: 7-Patient Refused. 9-Not Applicable-not attempted and the patient did not perform the activity before the current illness, exacerbation or injury. 10-Not Attempted due to Environmental Limitations-(lack of equipment, weather restraints, etc.). 88-Not Attempted due to Medical Conditions or Safety Concerns. Sit to Stand (QC): 5 Weight Bearing Right Lower Extremity: Right Full Weight Bearing Left Lower Extremity: Left Full Weight Bearing Gait Training Does the Patient Walk?: Yes Distance: 400' Walk 10 feet (QC): 5 Walk 50 ft with 2 Turns(QC): 5 Walk 150 ft (QC): 5 Gait Assistive Device: FWW safe and functional with no deviation Assessment Patient is up in recliner with needs met. PT to increase activity as tolerated by patient. PT Senior Living Goals Senior Living Goals PT Senior Living Goals Time Frame: Mar 08, 2019 Roll Left & Right (QC): 6 Sit to Lying (QC): 6 Lying-Sitting on Side/Bed(QC): 6 Sit to Stand (QC): 6 Chair/Ngs-db-Xfkke Xfer(QC): 6 Toilet Transfer (QC): 6 Car Transfer (QC): 6 Does the Patient Walk: Yes Walk 10 feet (QC): 6 Walk 50ft with 2 Turns (QC): 6 Walk 150 ft (QC): 6 1 Step (curb) (QC): 6 4 Steps (QC): 6 PT Plan Treatment/Plan Treatment Plan: Continue Plan of Care Treatment Plan: Bed Mobility, Education, Functional Activity Rosa, Functional Strength, Gait, Safety, Therapeutic Exercise, Transfers Treatment Duration: Mar 08, 2019 Frequency: 6 times per week Estimated Hrs Per Day: .25 hour per day Patient and/or Family Agrees t: Yes Time/GCodes Time In: 1137 Time Out: 1152 Total Billed Treatment Time: 15 Total Billed Treatment 1 visit FA 15 min JULIETA TOLBERT PT Feb 24, 2019 12:11
--- NOTE | 2019-02-24 14:43 | NUR ---
RD ASSESSMENT PMHx: hypercholesterolemia; HTN; pancreatitis; polyps PT INTERACTION: Pt was awake and pleasant during nutrition assessment for LOS. Pt states current appetite is good and has been for the past few days. Note avg PO intake of 88% x4d, per chart review. Pt states following a regular diet at home and has no issues with chewing/swallowing food. Pt states no recent issues with n/v/c at this time. Pt states having recent issues with a "little diarrhea." Note last BM was 1/5 and pt not currently on bowel regimen, per chart review. Pt states no recent wt changes. Note 30# wt gain x3w, per chart review. ABNORMAL NUTRITION-RELATED LAB VALUES LOW: K 3.4; Ca 7.4; phos 2.0 HIGH: Cl 109; glu 114 Est. kcal needs: 3131-9219 kcal | 15-18 kcal/kg Est. Pro needs: 132-154 g Pro | 1.2-1.4 g Pro/kg PES STATEMENT: Given current PO intake, no nutrition diagnosis at this time (NO-1.1) INTERVENTION: Continue with current diet order of Ulcer/Peptic Alcorn diet. Will continue to follow and reassess as pt needs and status change. MONITOR/EVALUATE: PO Intake; Plan of Care; Hydration Status; Weight Status; Lab Values Silver Jaramillo, MS, RD, LD
--- NOTE | 2019-02-24 15:06 | NUR ---
CM/SS: Visited with pt and daughter as to the plan for discharge. Plan: Pt will be discharged to daughters home for two weeks and return to his home. Summary: Met with pt and daughter to discuss discharge plan, as well as educate and complete paperwork related Durable Power of [employer] Att[employer] for Health Care. Pt would like daughter to be named as his agent. Paperwork completed, and witnessed. Copies given to pt and daughter. Pt eager to leave and go to daughters for a couple of weeks and then his home. Pt is feeling good today.
[2019-02-24] MEDS ORDERED: TAMS0.4C98 PO (15:15)
[2019-02-24] MEDS ORDERED: FERR325T5 PO (15:15)
[2019-02-24] MEDS ORDERED: FAMO20TA5 PO (15:15)
--- NOTE | 2019-02-24 15:39 | NUR ---
LATE ENTRY: DESHPANDE REMOVED AT [address] LAND'S ORDERS. IF PATIENT IS ABLE TO VOID, HE MAY GO HOME TODAY. IF HE IS UNABLE TO VOID, RE-INSERT THE DESHPANDE AND CONSULT UROLOGY. PATIENT VOIDED AT 1400 AND AT 1445.
--- NOTE | 2019-02-24 15:43 | Discharge Summary ---
Discharge Summary Hospital Course Problems/Dx: (1) Rectal polyp Status: Acute (2) Rectal bleeding Status: Acute (3) Acute blood loss anemia Status: Acute (4) Urinary retention Status: Resolved (5) Chopra catheter in place Status: Resolved Hospital Course Date of Admission: Feb 15, 2019 at 19:20 Admission Diagnosis : Family Physician/Provider: Mary Cruz Aprn Date of Discharge: 02/24/19 Discharge Diagnosis: [ ] Hospital Course: [ ] Labs and Pending Lab Test: Laboratory Tests 02/24/19 00:03: Glucometer 133H 02/24/19 04:11: White Blood Count 4.8, Red Blood Count 2.45L, Hemoglobin 7.0L, Hematocrit 22L, Mean Corpuscular Volume 88, Mean Corpuscular Hemoglobin 29, Mean Corpuscular Hemoglobin Concent 32, Red Cell Distribution Width 14.0, Platelet Count 175, Mean Platelet Volume 9.6, Neutrophils (%) (Auto) 64, Lymphocytes (%) (Auto) 18, Monocytes (%) (Auto) 13H, Eosinophils (%) (Auto) 5, Basophils (%) (Auto) 0, Neutrophils # (Auto) 3.1, Lymphocytes # (Auto) 0.9L, Monocytes # (Auto) 0.6, Eosinophils # (Auto) 0.3, Basophils # (Auto) 0.0, Sodium Level 140, Potassium Level 3.4L, Chloride Level 109H, Carbon Dioxide Level 21, Anion Gap 10, Blood Urea Nitrogen 9, Creatinine 0.92, Estimat Glomerular Filtration Rate > 60, BUN/Creatinine Ratio 10, Glucose Level 114H, Calcium Level 7.4L, Phosphorus Level 2.0L, Magnesium Level 1.6 02/24/19 12:49: Glucometer 129H Microbiology 02/18/19 MRSA Screen - Final, Complete MRSA not isolated Home Meds Active Ferrous Sulfate 325 Mg Tablet. 325 Mg PO DAILY 30 Days Famotidine 20 Mg Tablet 20 Mg PO BID 30 Days Flomax (Tamsulosin HCl) 0.4 Mg Cap 0.4 Mg PO DAILY@1800 30 Days Aspirin EC (Aspirin) 325 Mg Tablet. 325 Mg PO DAILY Reported Gabapentin 300 Mg Capsule 300 Mg PO TID Simvastatin 40 Mg Tablet 40 Mg PO HS Lisinopril-Hctz 20-25 mg Tab (Lisinopril/Hydrochlorothiazide) 1 Each Tablet 1 Tab PO DAILY Discharge Physical Examination Vital Signs Vital Signs Date Time Temp Pulse Resp B/P (MAP) Pulse Ox O2 Delivery O2 Flow Rate FiO2 02/24/19 12:00 36.9 83 18 182/84 (116) 96 Room Air 02/22/19 20:00 2.00 02/20/19 18:57 100 Allergies: Coded Allergies: No Known Drug Allergies (Unverified , 06/04/18) Discharge Summary Date of Admission Feb 15, 2019 at 19:20 Date of Discharge Discharge Date: Feb 24, 2019 Admission Diagnosis rectal bleeding most likely related to villous adenoma Anemia secondary to rectal bleeding Mild dehydration improved Near syncope most likely related to volume loss and possible vasovagal reaction Plan for surgical consultation and to follow the recommendations of the surgeons. Discharge Diagnosis Colon mass s/p resection Iron deficiency anemia Hemoglobin 7 this morning Surgery following Continue iron infusions Urinary retention Chopra in place Remove Chopra and attempt voiding trial today Hypokalemia Hypophosphatemia Continue to monitor and replace as needed DVT prophylaxis: SCDs (1) Rectal polyp Status: Acute (2) Rectal bleeding Status: Acute (3) Acute blood loss anemia Status: Acute (4) Urinary retention Status: Resolved (5) Chopra catheter in place Status: Resolved Clinical Quality Measures DVT/VTE Risk/Contraindication: Risk Factor Score Per Nursin RFS Level Per Nursing on Admit: 2=Moderate EMIL KRUEGER MD Feb 24, 2019 15:43
[2019-02-24 16:30] VITALS: BP 182/84
[2019-02-24] MEDS ORDERED: FAMOTIDINE 20 MG (PEPCID) TABLET PO SCH (21:00)
--- NOTE | 2019-02-25 15:21 | Discharge Summary ---
Discharge Summary Hospital Course Was the Problem List Reviewed?: Yes Problems/Dx: (1) Rectal polyp Status: Acute (2) Rectal bleeding Status: Acute (3) Acute blood loss anemia Status: Acute (4) Urinary retention Status: Resolved (5) Chopra catheter in place Status: Resolved Hospital Course Date of Admission: Feb 15, 2019 at 19:20 Admission Diagnosis : Acute lower GI bleeding Family Physician/Provider: Mary Cruz Aprn Date of Discharge: 02/25/19 Discharge Diagnosis: Colon polyp status post hemicolectomy, acute blood loss anemia Hospital Course: Johny Liriano is an 78-year-old male who recently had a colonoscopy and was found to have a polyp who presented with acute lower GI bleeding. He was treat ed conservatively with transfusions and responded well. General surgery was consulted and performed a low anterior resection. He was also found to be severely iron deficient due to his chronic blood loss and was given 2 doses of IV Venofer. He should repeat a hemoglobin level later this week. He will follow-up with Dr. Cardoza, surgery, in about 2 weeks. Labs and Pending Lab Test: Microbiology 02/18/19 MRSA Screen - Final, Complete MRSA not isolated Home Meds Active Ferrous Sulfate 325 Mg Tablet. 325 Mg PO DAILY 30 Days Famotidine 20 Mg Tablet 20 Mg PO BID 30 Days Flomax (Tamsulosin HCl) 0.4 Mg Cap 0.4 Mg PO DAILY@1800 30 Days Aspirin EC (Aspirin) 325 Mg Tablet. 325 Mg PO DAILY Reported Gabapentin 300 Mg Capsule 300 Mg PO TID Simvastatin 40 Mg Tablet 40 Mg PO HS Lisinopril-Hctz 20-25 mg Tab (Lisinopril/Hydrochlorothiazide) 1 Each Tablet 1 Tab PO DAILY Assessment/Pt Instructions Take medications as prescribed. Have labs drawn later this week to check your hemoglobin level. Follow up with Dr. Cardoza in about 2 weeks. Return with worsening lightheadedness, dizziness, rectal bleeding, or if you feel like you're getting worse. Discharge Planning: <30 minutes discharge planning Discharge Instructions Discharge Diet: No Restrictions Activity as Tolerated: Yes Consultations General surgery Discharge Physical Examination Vital Signs Vital Signs Date Time Temp Pulse Resp B/P (MAP) Pulse Ox O2 Delivery O2 Flow Rate FiO2 02/24/19 16:30 36.9 83 18 182/84 96 Room Air 02/22/19 20:00 2.00 02/20/19 18:57 100 Allergies: Coded Allergies: No Known Drug Allergies (Unverified , 06/04/18) Discharge Summary Date of Admission Feb 15, 2019 at 19:20 Date of Discharge Feb 24, 2019 at 16:30 Discharge Date: Feb 24, 2019 Discharge Time: 16:30 Admission Diagnosis rectal bleeding Consults/Procedures Consulations General surgery Procedures Low anterior resection Discharge Diagnosis Colon mass s/p resection, Iron deficiency anemia (1) Rectal polyp Status: Acute (2) Rectal bleeding Status: Acute (3) Acute blood loss anemia Status: Acute (4) Urinary retention Status: Resolved (5) Chopra catheter in place Status: Resolved Clinical Quality Measures DVT/VTE Risk/Contraindication: Risk Factor Score Per Nursin RFS Level Per Nursing on Admit: 2=Moderate EMIL KRUEGER MD Feb 25, 2019 15:20
== END 2019-02-24 16:30 | disposition home or self-care (01) | DRG 330 ==
LOC: EDUNIT# 17:39 → ER 17:40 → CSD 19:20 → ICU 02-20 16:27 → 4TH 02-21 09:09
PROVIDERS: ADMIT Internal Medicine; ATTEND Internal Medicine
PROC: 0DTP0ZZ Resection of Rectum, Open Approach (ICD-10-PCS; 2019-02-20)
PROC: 0DJD8ZZ Inspection of Lower Intestinal Tract, Via Natural or Artificial Opening Endoscopic (ICD-10-PCS; 2019-02-20)
PROC: 0DTN0ZZ Resection of Sigmoid Colon, Open Approach (ICD-10-PCS; principal; 2019-02-20 11:24)
DX: D12.7 Benign neoplasm of rectosigmoid junction (principal); D62 Acute posthemorrhagic anemia; I95.89 Other hypotension; E86.1 Hypovolemia; E86.0 Dehydration; E78.00 Pure hypercholesterolemia, unspecified; I10 Essential (primary) hypertension; Z72.89 Other problems related to lifestyle; D37.5 Neoplasm of uncertain behavior of rectum
CPT/HCPCS: 36415; 36600; 71045; 80048; 80053; 82805; 82962; 83540; 83735; 84100; 85007; 85025; 85027; 85610; 85730; 86850; 86900; 86901; 86920; 87081; 88305; 88307; 94664; 94760; 96360

== ENCOUNTER 2021-04-22 13:47 | Emergency (ER) | payer MEDICARE ==
[~2021-04-22] VITALS: Ht 170 cm; Wt 97.0 kg
[~2021-04-22 13:47] MED LIST changes: +ASPI325T32 PO; +FAMO20TA5 PO; +FERR325T5 PO; -LISI1TAB10 PO; +LISI1TAB48 PO; +SIMV40TA25 PO; -SIMV40TA4 PO; +TMSL.4C PO
--- NOTE | 2021-04-22 13:53 | ED Chest Pain ---
General Stated Complaint: CHEST PAIN; HEADACHE History of Present Illness Date Seen by Provider: Apr 22, 2021 Time Seen by Provider: 13:53 Initial Comments 80-year-old male presents with epigastric discomfort/chest pain. Reports is been going on and off for at least couple weeks. Prior to arrival he took 2 [id number] stomach medications. He is unsure what he took. He reports that now the pain is resolved. Patient reports that he has recently seen a offset printer with a clear checkup. Patient reports that he seems does have these occasionally but is not sure what causes it. Patient denies any shortness of breath, diaphoresis,, vomiting, fever, chills, cough Allergies and Home Medications Allergies Coded Allergies: No Known Drug Allergies (Unverified , 06/04/18) Patient Home Medication List Home Medication List Reviewed: Yes Aspirin (Aspirin EC) 325 Mg Tablet.dr, 325 MG PO DAILY Prescribed by: WOLFGANG CAMPUZANO on 02/16/19 1340 Famotidine (Famotidine) 20 Mg Tablet, 20 MG PO BID Prescribed by: EMIL KRUEGER on 02/24/19 151 Ferrous Sulfate (Ferrous Sulfate) 325 Mg Tablet.dr, 325 MG PO DAILY Prescribed by: EMIL KRUEGER on 02/24/19 151 Gabapentin (Gabapentin) 300 Mg Capsule, 300 MG PO TID, (Reported) Entered as Reported by: TERESA NORTON on 06/04/18 09 Lisinopril/Hydrochlorothiazide (Lisinopril-Hctz 20-25 mg Tab) 1 Each Tablet, 1 TAB PO DAILY, (Reported) Entered as Reported by: TERESA NORTON on 06/04/18 09 Simvastatin (Simvastatin) 40 Mg Tablet, 40 MG PO HS, (Reported) Entered as Reported by: TERESA NORTON on 06/04/18 0959 Tamsulosin HCl (Flomax) 0.4 Mg Cap, 0.4 MG PO DAILY@1800 Prescribed by: EMIL KRUEGER on 02/24/19 151 Review of Systems Review of Systems Constitutional: No chills, No fever, No malaise Cardiovascular: See HPI Gastrointestinal: See HPI Genitourinary: No Symptoms Reported Musculoskeletal: no symptoms reported Skin: no symptoms reported Psychiatric/Neurological: No Symptoms Reported Endocrine: No Symptoms Reported Past Ayhclgp-[id number]-Ttttpn Hx Seasonal Allergies Seasonal Allergies: No Past Medical History Surgeries: Yes Orthopedic Respiratory: No Cardiac: Yes High Cholesterol, Hypertension Neurological: No Genitourinary: No Gastrointestinal: Yes Pancreatitis, Polyps Musculoskeletal: No Endocrine: No HEENT: No Cataract 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 oz. [id number]; 35.62 BMI Method:Stated General Appearance: No Apparent Distress HEENT: TMs Normal Respiratory: Chest Non Tender, Lungs Clear, Normal Breath Sounds Cardiovascular: Regular Rate, Rhythm Extremity: Normal Capillary Refill, Normal Inspection Neurologic/Psychiatric: Alert, Oriented x3, No Motor/Sensory Deficits, Normal Mood/Affect Skin: Normal Color, Warm/Dry Progress/Results/Core Measures Results/Orders Lab Results Laboratory Tests Test 04/22/21 13:56 04/22/21 15:03 04/22/21 15:14 Range/Units White Blood Count 8.9 4.3-11.0 10^3/uL Red Blood Count 5.09 4.30-5.52 10^6/uL Hemoglobin 15.3 13.3-17.7 g/dL Hematocrit 42 40-54 % Mean Corpuscular Volume 82 80-99 fL Mean Corpuscular Hemoglobin 30 25-34 pg Mean Corpuscular Hemoglobin Concent 37 H 32-36 g/dL Red Cell Distribution Width 12.1 10.0-14.5 % Platelet Count 153 130-400 10^3/uL Mean Platelet Volume 9.2 9.0-12.2 fL Immature Granulocyte % (Auto) 0 % Neutrophils (%) (Auto) 74 42-75 % Lymphocytes (%) (Auto) 16 12-44 % Monocytes (%) (Auto) 8 0-12 % Eosinophils (%) (Auto) 1 0-10 % Basophils (%) (Auto) 0 0-10 % Neutrophils # (Auto) 6.6 1.8-7.8 10^3/uL Lymphocytes # (Auto) 1.4 1.0-4.0 10^3/uL Monocytes # (Auto) 0.8 0.0-1.0 10^3/uL Eosinophils # (Auto) 0.1 0.0-0.3 10^3/uL Basophils # (Auto) 0.0 0.0-0.1 10^3/uL Immature Granulocyte # (Auto) 0.0 0.0-0.1 10^3/uL Prothrombin Time 13.2 12.2-14.7 SEC INR Comment 1.0 0.8-1.4 Activated Partial Thromboplast Time 31 24-35 SEC Sodium Level 124 *L 125 *L 135-145 MMOL/L Potassium Level 3.7 3.6 3.6-5.0 MMOL/L Chloride Level 86 L 89 L 98-107 MMOL/L Carbon Dioxide Level 25 24 21-32 MMOL/L Anion Gap 13 12 5-14 MMOL/L Blood Urea Nitrogen 20 H 20 H 7-18 MG/DL Creatinine 1.21 1.09 0.60-1.30 MG/DL Estimat Glomerular Filtration Rate 60 68 BUN/Creatinine Ratio 17 18 Glucose Level 145 H 116 H 70-105 MG/DL Calcium Level 9.9 9.7 8.5-10.1 MG/DL Corrected Calcium 8.5-10.1 MG/DL Phosphorus Level 3.1 2.3-4.7 MG/DL Magnesium Level 1.8 1.6-2.4 MG/DL Total Bilirubin 1.1 H 0.1-1.0 MG/DL Aspartate Amino Transf (AST/SGOT) 24 5-34 U/L Alanine Aminotransferase (ALT/SGPT) 26 0-55 U/L Alkaline Phosphatase 63 40-136 U/L Myoglobin 90.0 10.0-92.0 NG/ML Troponin I < 0.30 <0.30 NG/ML Total Protein 7.5 6.4-8.2 GM/DL Albumin 4.8 H 3.2-4.5 GM/DL TSH [place] Testing 3.16 0.35-4.94 UIU/ML Urine Color YELLOW Urine Clarity CLEAR Urine pH 6.5 5-9 Urine Specific [place] 1.020 1.016-1.022 Urine Protein NEGATIVE NEGATIVE Urine Glucose (UA) NEGATIVE NEGATIVE Urine Ketones NEGATIVE NEGATIVE Urine Nitrite NEGATIVE NEGATIVE Urine Bilirubin NEGATIVE NEGATIVE Urine Urobilinogen 0.2 < = 1.0 MG/DL Urine Leukocyte Esterase NEGATIVE NEGATIVE Urine RBC (Auto) NEGATIVE NEGATIVE Urine RBC NONE /HPF Urine WBC RARE /HPF Urine Squamous Epithelial Cells RARE /HPF Urine Crystals NONE /LPF Urine Bacteria NEGATIVE /HPF Urine Casts NONE /LPF Urine Mucus NEGATIVE /LPF Urine Culture Indicated NO My Orders Orders - LEON,WILLY L DO Cbc With Automated Diff (04/22/21 13:54) Magnesium (04/22/21 13:54) Chest 1 View Ap/Pa Only (04/22/21 13:54) Ekg Tracing (04/22/21 13:54) Comprehensive Metabolic Panel (04/22/21 13:54) Myoglobin Serum (04/22/21 13:54) Protime With Inr (04/22/21 13:54) Partial Thromboplastin Time (04/22/21 13:54) Monitor-Rhythm Ecg Trace Only (04/22/21 13:54) Aspirin Chewable Tablet (Baby Aspirin Ch (04/22/21 14:00) Ed Iv/Invasive Line Start (04/22/21 13:54) Troponin I Fs (04/22/21 13:54) Ed Iv/Invasive Line Start (04/22/21 14:34) Ns Iv 500 Ml (Sodium Chloride 0.9%) (04/22/21 14:45) Magnesium (04/22/21 14:41) Thyroid Analyzer (04/22/21 14:41) Ua Culture If Indicated (04/22/21 14:41) Phosphorus (04/22/21 14:41) Basic Metabolic Panel (04/22/21 15:44) Medications Given in ED Vital Signs/I&O 04/22/21 04/22/21 13:58 16:24 Temp 36.2 36.2 Pulse 86 86 Resp 18 18 B/P (MAP) 157/76 (103) 157/76 Pulse Ox 98 98 O2 Delivery Room Air Room Air 04/23/21 00:00 Intake Total 500 ml Balance 500 ml Progress Progress Note : Progress Note Patient with no more epigastric discomfort/chest discomfort while in the ER. That is likely related to reflux. Patient does have a low sodium of 124 that is moderately new. Patient was given a 500 mL bolus of normal saline and his sod ium and chloride both improved slightly. Patient reports he recently took salt out of his diet and has been drinking a lot of water. I asked him to switch to electrolyte containing drinks such as Gatorade/body armor or electrolyte infuse water along with add a little bit of salt to his diet. I also discussed patient with his primary care provider Chava Law. I have made an appointment with him on Saturday 05/27 for a recheck. He should return to the ER between now and then if he has any worsening symptoms. Patient adamantly stated that he would prefer not to be admitted to the hospital. Patient stable and discharged Initial ECG Impression Date: Apr 22, 2021 Initial ECG Impression Time: 13:51 Initial ECG Rhythm: Normal Sinus Initial ECG Intervals Right bundle branch Comment Right bundle branch block, otherwise normal EKG Departure Impression Primary Impression: Hyponatremia Disposition: 01 HOME, SELF-CARE Condition: Stable Departure-Patient Inst. Referrals: CHAVA LAW APRN (PCP) Primary Care Physician [facility][1]/[place] (Family) Primary Care Physician Patient Instructions: Hyponatremia (DC) Add. Discharge Instructions: Please add an electrolyte-containing drink such as Gatorade, body armor or electrolyte infuse water to your diet approximately 24 to 36 ounces daily Please elevate a salt to your diet You have an appointment with Chava on April 26 at 2 PM Return to the ER with any concerns between now and then WILLY LEON DO Apr 22, 2021 13:53
[2021-04-22] MEDS ORDERED: ASPIRIN 81 MG CHEW (CHILDREN'S ASA) PO ONE (14:00)
[2021-04-22 14:02] LABS: BASOPHILS % (AUTO) 0 % (0-10); EOSINOPHILS # (AUTO) 0.1 10^3/uL (0.0-0.3); EOSINOPHILS % (AUTO) 1 % (0-10); HEMATOCRIT 42 % (40-54); HEMOGLOBIN 15.3 g/dL (13.3-17.7); LYMPHOCYTES # (AUTO) 1.4 10^3/uL (1.0-4.0); LYMPHOCYTES % (AUTO) 16 % (12-44); MEAN CORPUSCULAR HEMOGLOBIN 30 pg (25-34); MEAN CORPUSCULAR HGB CONC 37 g/dL (32-36); MEAN CORPUSCULAR VOLUME 82 fL (80-99); MEAN PLATELET VOLUME 9.2 fL (9.0-12.2); MONOCYTES # (AUTO) 0.8 10^3/uL (0.0-1.0); MONOCYTES % (AUTO) 8 % (0-12); NEUTROPHILS # (AUTO) 6.6 10^3/uL (1.8-7.8); NEUTROPHILS % (AUTO) 74 % (42-75); PLATELET COUNT 153 10^3/uL (130-400); WHITE BLOOD COUNT 8.9 10^3/uL (4.3-11.0)
--- NOTE | 2021-04-22 14:06 | Diagnostic Imaging Report ---
EXAMINATION: Chest, one view. HISTORY: Chest pain. COMPARISON: 02/21/2019. FINDINGS: There is a rounded opacity projecting over the left heart border. No pleural effusion or pneumothorax. No edema. Heart size is normal. IMPRESSION: 1. Rounded opacity projecting over the left heart border, chest CT with contrast recommended to ensure this is overlapping normal structures and not a mass. Dictated by: Dictated on workstation # [id number]
[2021-04-22 14:13] LABS: PROTHROMBIN TIME PATIENT 13.2 SEC (12.2-14.7)
[2021-04-22 14:27] LABS: CHLORIDE 86 MMOL/L (98-107); POTASSIUM 3.7 MMOL/L (3.6-5.0); SODIUM 124 MMOL/L (135-145)
[2021-04-22 14:28] LABS: ALANINE AMINOTRANSFERASE 26 U/L (0-55); ALBUMIN 4.8 GM/DL (3.2-4.5); ALKALINE PHOSPHATASE 63 U/L (40-136); BILIRUBIN,TOTAL 1.1 MG/DL (0.1-1.0); BUN/CREATININE RATIO 17; CALCIUM 9.9 MG/DL (8.5-10.1); CARBON DIOXIDE 25 MMOL/L (21-32); CREATININE SERUM 1.21 MG/DL (0.60-1.30); GFR ESTIMATED 60; GLUCOSE 145 MG/DL (70-105); MAGNESIUM 1.8 MG/DL (1.6-2.4); TOTAL PROTEIN 7.5 GM/DL (6.4-8.2)
[2021-04-22] MEDS ORDERED: NS IV 500 ML 500 ML IV ONE (14:45)
[2021-04-22 15:02] LABS: MAGNESIUM 1.8 MG/DL (1.6-2.4)
[2021-04-22 15:10] LABS: BILIRUBIN,URINE NEGATIVE (NEGATIVE); CLARITY,URINE CLEAR; COLOR,URINE YELLOW; GLUCOSE, URINE (UA) NEGATIVE (NEGATIVE); KETONES,URINE NEGATIVE (NEGATIVE); LEUKOCYTE ESTERASE ,URINE NEGATIVE (NEGATIVE); NITRITE,URINE NEGATIVE (NEGATIVE); PH,URINE 6.5 (5-9); PROTEIN,URINE NEGATIVE (NEGATIVE)
[2021-04-22 15:15] LABS: BACTERIA,URINE NEGATIVE /HPF; SQUAMOUS EPITHELIAL CELL,UR RARE /HPF; WBC,URINE RARE /HPF
[2021-04-22 16:06] LABS: CALCIUM 9.7 MG/DL (8.5-10.1); CREATININE SERUM 1.09 MG/DL (0.60-1.30); POTASSIUM 3.6 MMOL/L (3.6-5.0)
[2021-04-22 16:24] VITALS: BP 157/76
[2021-04-22 17:54] LABS: PHOSPHORUS 3.1 MG/DL (2.3-4.7)
[2021-04-22 18:16] LABS: TSH (THYROID ANALYZER) 3.16 UIU/ML (0.35-4.94)
== END 2021-04-22 16:24 | disposition home or self-care (01) ==
LOC: EDUNIT# 13:47 → ER FS 13:48
DX: E87.1 Hypo-osmolality and hyponatremia (principal)
CPT/HCPCS: 36415; 71045; 80048; 80053; 81000; 83735; 83874; 84100; 84443; 84484; 85025; 85610; 85730; 93005

== ENCOUNTER → 2022-09-29 | Outpatient (CLI) | payer MEDICARE | LOC: LAB FS 11:09 | PROVIDERS: ATTEND Urology | DX: R97.20 Elevated prostate specific antigen [PSA] (principal) | CPT/HCPCS: 36415; 84153 ==